=== PATIENT | male | born 1935 | race Caucasian/White ===

== ENCOUNTER 2021-05-28 12:29 | Inpatient (IN) | payer OTHER ==
[2021-05-28] MEDS ORDERED: LORazepam 2 MG/ML VIAL ONE ×2 (14:00→21:07)
--- NOTE | 2021-05-28 14:06 | RAD REPORT ---
EXAM DESCRIPTION: CT - Head Brain Wo Cont - 05/28/2021 1:49 pm CLINICAL HISTORY: MENTAL STATUS CHANGE COMPARISON: No comparisons TECHNIQUE: Axial 5 mm thick images of the head were obtained without IV contrast. All CT scans are performed using dose optimization technique as appropriate and may include automated exposure control or mA/KV adjustment according to patient size. FINDINGS: No intracranial hemorrhage, mass, edema or shift of mid-line structures. No acute cortical based infarction. No cortical edema or sulcal effacement. No abnormal extra-axial fluid collections. Moderate severity atrophy is present with ventricles in proportion. Mild to moderate severity chroni c ischemic change seen in the cerebral white matter. 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 Dense arterial tree calcifications are present. Mastoid air cells and visualized portions of the paranasal sinuses are clear. No acute bony findings. IMPRESSION: Negative non-contrast CT head examination for acute intracranial process. Moderate severity atrophy and mild to moderate chronic ischemic changes are present.
[2021-05-28 14:23] LABS: Basophils % 0.5 % (0-1.3); Hematocrit 35.3 % (39.6-49.0); Lymphocytes % 10.5 % (15.3-44.8); MPV 6.8 fL (7.6-11.3); RBC Red Blood Cell Count 3.95 M/uL (4.33-5.43)
[2021-05-28 14:29] LABS: Protime INR 1.04
--- NOTE | 2021-05-28 14:34 | RAD REPORT ---
EXAM DESCRIPTION: RAD - Chest Single View - 05/28/2021 2:20 pm CLINICAL HISTORY: altered mental status COMPARISON: None TECHNIQUE: AP portable chest image was obtained 05/28/2021 2:20 pm . FINDINGS: No mass, consolidation or failure findings. Interstitial markings are mildly prominent bel ieved to be baseline for the patient. Heart and vasculature are normal. No measurable pleural effusio n and no pneumothorax. No acute bony abnormality seen. No acute aortic findings suspected. IMPRESSION: No acute cardiopulmonary process.
[2021-05-28 14:48] LABS: Urine Blood 1+ (Negative); Urine Glucose Negative (Negative); Urine Protein 1+ (Negative); Urine Specific Gravity 1.015 (1.005-1.030); Urine pH 8.5 (5.0-7.0)
[2021-05-28 14:57] LABS: ALT/SGPT 17 U/L (12-78); Albumin 3.9 g/dL (3.4-5.0); Alkaline Phosphatase 42 U/L (45-117); BUN Blood Urea Nitrogen 20 mg/dL (7-18); Bicarbonate 22 mmol/L (21-32); Bilirubin Direct 0.1 mg/dL (0-0.2); Bilirubin Total 0.8 mg/dL (0.2-1.0); Glucose Level 90 mg/dL (74-106); NT PRO-BNP 456 pg/mL (<450); Protein, Total 6.8 g/dL (6.4-8.2); Sodium Level 131 mmol/L (136-145); Troponin (Emerg Dept Use Only) < 0.02 ng/mL (0.0-0.045)
[2021-05-28 14:58] LABS: AST/SGOT 23 U/L (15-37); Magnesium 2.2 mg/dL (1.8-2.4); Potassium 4.4 mmol/L (3.5-5.1)
--- NOTE | 2021-05-28 15:09 | ER ---
Nurse's Notes [facility] Name: Luis Fernando Carias Age: 86 yrs Sex: Male : 1935 Arrival Date: 05/28/2021 Time: 12:41 Bed 8 Private MD: Diagnosis: Altered mental status, unspecified;UTI/ Urinary tract infection, site not specified Presentation: 05/28 12:46 Chief complaint: EMS states: Toned out for fall, pt altered on arrival, family reports jl7 last normal at 2100 last night, pt A\T\Ox1 to self. Family reports he has done this before and was sent to a psychiatric facility. Coronavirus screen: Client denies travel out of the [place] in the last 14 days. At this time, the client does not indicate any symptoms associated with coronavirus-19. Ebola Screen: No symptoms or risks identified at this time. Initial Sepsis Screen: Does the patient meet any 2 criteria? No. Patient's initial sepsis screen is negative. Does the patient have a suspected source of infection? No. Patient's initial sepsis screen is negative. Risk Assessment: Do you want to hurt yourself or someone else? Patient reports no desire to harm self or others. Onset of symptoms is unknown. Care prior to arrival: Glucose check: 153. 12:46 Method Of Arrival: EMS: [facility]7 12:46 Acuity: LIZA 3 jl7 Triage Assessment: 12:50 General: Appears in no apparent distress. uncomfortable, Behavior is cooperative, jl7 agitated, restless. Pain: Denies pain. Neuro: Level of Consciousness is awake, alert, obeys commands, Oriented to person, Speech with expressive aphasia noted. Cardiovascular: Patient's skin is warm and dry. Respiratory: Airway is patent Respiratory effort is even, unlabored, Respiratory pattern is regular, symmetrical. Derm: Skin is pink, warm \T\ dry. Historical: - Allergies: 12:50 PENICILLINS; jl7 - Home Meds: 12:50 metoprolol tartrate 25 mg Oral tab [Active]; jl7 - PMHx: 12:50 Hypertensive disorder; jl7 - Immunization history:: Adult Immunizations up to date. - Social history:: Smoking status: Patient denies any tobacco usage or history of. Screenin:00 Abuse screen: Denies threats or abuse. Denies injuries from another. Nutritional bp screening: No deficits noted. Tuberculosis screening: No symptoms or risk factors identified. Fall Risk None identified. Assessment: 13:00 General: see triage assessment. jl7 14:00 Reassessment: Patient appears in no apparent distress at this time. No changes from jl7 previously documented assessment. Patient and/or family updated on plan of care and expected duration. Pain level reassessed. Patient is alert, oriented x 3, equal unlabored respirations, skin warm/dry/pink. 16:00 Reassessment: No changes from previously documented assessment. Patient and/or family bp updated on plan of care and expected duration. Pain level reassessed. ADMIT IN PROCESS. ADMIT MD AT B/S. PER FAMILY SUGGESTION, PT PLACED IN RESTRAINTS FOR PT SAFETY. PT AOx0, NOT VERBALLY REDIRECTABLE, ATTEMPTING TO D/C OWN PIV AND EXIT BED. 17:47 Reassessment: DR SEAMAN AT /S. bp 18:40 Reassessment: No changes from previously documented assessment. Patient and/or family bp updated on plan of care and expected duration. Pain level reassessed. ADMIT DECLINED BY FLOOR AT THIS TIME 2/2 PT SPENDING TIME IN RESTRAINTS. 18:45 Reassessment: VO from Dr. Seaman for 2 mg Haldol IVP q4hr PRN. jl7 19:00 Reassessment: Patient appears in no apparent distress at this time. Patient and/or ad5 family updated on plan of care and expected duration. Pain level reassessed. Family updated to plan of care, questions/concerns addressed. Awaiting bed placement for admission at this time. Pt resting comfortably in stretcher, resp with ease. VSS. Will continue to monitor. 20:00 Reassessment: Patient appears in no apparent distress at this time. No changes from ad5 previously documented assessment. Patient and/or family updated on plan of care and expected duration. Pain level reassessed. 21:08 Reassessment: Patient appears in no apparent distress at this time. Pt R elbow cleaned ad5 and non-adherent bandage applied to noted skin tear, reinforced with damien wrap. Pt tolerated well. Repositioned back into stretcher for comfort, resp with ease. Bed remains low and locked, bedrails x 2, call light within reach. Pt with noted continued restlessness and picking at CM cords, reoriented to surroundings and plan of care. Will continue to monitor. 22:30 Reassessment: Pt resting comfortably in stretcher with eyes closed, arouses to verbal ad5 stimuli. Resp with ease. Denies c/o at this time. VS remain stable. Bed low and locked, bedrails x 2, call light within reach. NAD noted, will continue to monitor. Vital Signs: 12:46 BP 121 / 77; Pulse 80; Resp 15; Temp 97.8; Pulse Ox 100% on R/A; jl7 13:30 BP 129 / 72; Pulse 87; Resp 15; Pulse Ox 93% ; jl7 14:15 BP 117 / 64; Pulse 82; Resp 15; Pulse Ox 95% ; jl7 15:20 BP 113 / 64; Pulse 64; Resp 18; Pulse Ox 98% ; bp 17:01 BP 114 / 64; Pulse 68; Resp 18; Pulse Ox 98% ; bp 18:28 BP 131 / 72; Pulse 85; Resp 17; Pulse Ox 100% ; bp 19:44 BP 107 / 57; Pulse 91; Resp 15 S; Pulse Ox 99% on R/A; ad5 21:09 BP 125 / 70; Pulse 78; Resp 16 S; Pulse Ox 99% on R/A; ad5 22:00 BP 112 / 63; Pulse 62; Resp 15 S; Pulse Ox 99% on R/A; ad5 07/16 15:30 BP 103 / 52; Pulse 71; Resp 18; Pulse Ox 100% ; kg ED Course: 05/28 12:41 Patient arrived in ED. iw 12:46 Vida Butler, RN is Primary Nurse. jl7 12:50 Triage completed. jl7 12:50 Arm band placed on right wrist. jl7 13:00 Patient has correct armband on for positive identification. Placed in gown. Bed in low bp position. Call light in reach. Side rails up X2. Adult w/ patient. 13:02 Gautam Weller PA is PHCP. cp 13:02 Miko Carrion MD is Attending Physician. cp 13:40 Inserted saline lock: 20 gauge in left wrist, using aseptic technique. Blood collected. bp 13:48 CT Head Brain wo Cont In Process Unspecified. EDMS 14:19 XRAY Chest (1 view) In Process Unspecified. EDMS 15:09 Wendy Rodarte MD is Hospitalizing Provider. cp 15:40 Darion Seaman is Hospitalizing Provider. cp 16:59 No provider procedures requiring assistance completed. Patient admitted, IV remains in bp place. 05/29 06:21 Primary Nurse role handed off by Vida Butler, JORDY tt3 09:55 Monique Danielle, JORDY is Primary Nurse. kg Restraints: 05/28 16:00 Non-Violent Restraint: Order obtained. Initiated on May 28, 2021 at 16:00 Unable to bp provide Restraint education. PT DOES NOT UNDERSTAND. Actions/Behavior observed: Confused/disoriented, has difficulty remembering/follow instructions, has impaired decision making, repeated attempts to get up from bed/chair w/o assistance, unable to follow instructions, repeated attempts to remove/tamper lines/tubes/IV med devices \T\ wound dressing, Less restrictive alternatives attempted: decrease environmental stimuli, placed near Nurse station, reoriented to location, family at bedside, medications evaluated, repositioned, performed diversional activities, eliminated unnecessary lines/tubes, placed items close to patient, verbal de-escalation performed, Alternative interventions: Ineffective. Clinical justification for use: airway protection, patient safety, Mental status: agitated/restless, confused, Cognition: poor judgement, poor safety awareness, poor attention/concentration, unable to follow commands, Circulation: Within defined parameters (based on Cardiovascular assessment) Skin integrity: Within defined parameters (based on Integumentary assessment) Signs of injury related to restraint: Range of Motion (ROM): declined. Hydration/Food: patient declined. Elimination/Hygiene: Restraint status: Soft wrist restraint (Right) Started. Soft wrist restraint (Left) Started. 19:00 Non-Violent Restraint: Initiated on May 28, 2021 at 16:00 Restraint Education provided ad5 to family/significant other/legally authorized technical services representative. Actions/Behavior observed: Confused/disoriented, has difficulty remembering/follow instructions, has impaired decision making, repeated attempts to get up from bed/chair w/o assistance, unable to follow instructions, repeated attempts to remove/tamper lines/tubes/IV med devices \T\ wound dressing, Less restrictive alternatives attempted: decrease environmental stimuli, placed near Nurse station, reoriented to location, family at bedside, medications evaluated, repositioned, performed diversional activities, Alternative interventions: Ineffective. Clinical justification for use: airway protection, patient safety, Mental status: agitated/restless, confused, Cognition: poor judgement, poor safety awareness, poor attention/concentration, unable to follow commands, Circulation: Within defined parameters (based on Cardiovascular assessment) Skin integrity: Within defined parameters (based on Integumentary assessment) Signs of injury related to restraint: No injuries noted. Range of Motion (ROM): performed. Hydration/Food: patient declined. Elimination/Hygiene: diapers changed. Restraint status: Soft wrist restraint (Right) Continued. Soft wrist restraint (Left) Continued. Criteria to discontinue Restraint not met. Restraint continued. 21:00 Non-Violent Restraint: Initiated on May 28, 2021 at 16:00 Unable to provide Restraint ad5 education. pt family to go home at this time, pt remains confused. Actions/Behavior observed: Confused/disoriented, has difficulty remembering/follow instructions, has impaired decision making, repeated attempts to get up from bed/chair w/o assistance, unable to follow instructions, repeated attempts to remove/tamper lines/tubes/IV med devices \T\ wound dressing, Less restrictive alternatives attempted: decrease environmental stimuli, placed near Nurse station, reoriented to location, family at bedside, medications evaluated, medicated for pain/anxiety, repositioned, performed diversional activities, Alternative interventions: Ineffective. Clinical justification for use: airway protection, patient safety, Mental status: agitated/restless, confused, Cognition: poor judgement, poor safety awareness, poor attention/concentration, unable to follow commands, Circulation: Within defined parameters (based on Cardiovascular assessment) Skin integrity: Within defined parameters (based on Integumentary assessment) Signs of injury related to restraint: No injuries noted. Range of Motion (ROM): declined. Hydration/Food: patient declined. Elimination/Hygiene: Patient declined. Restraint status: Soft wrist restraint (Right) Continued. Soft wrist restraint (Left) Continued. Criteria to discontinue Restraint not met. Restraint continued. :00 Non-Violent Restraint: Initiated on May 28, 2021 at 16:00 Unable to provide Restraint ad5 education. pt appears asleep at this time. Actions/Behavior observed: Confused/disoriented, has difficulty remembering/follow instructions, has impaired decision making, repeated attempts to get up from bed/chair w/o assistance, unable to follow instructions, repeated attempts to remove/tamper lines/tubes/IV med devices \T\ wound dressing, Less restrictive alternatives attempted: decrease environmental stimuli, placed near Nurse station, reoriented to location, medications evaluated, medicated for pain/anxiety, repositioned, performed diversional activities, Alternative interventions: Effective Clinical justification for use: airway protection, patient safety, Mental status: confused, patient asleep, Cognition: poor judgement, poor safety awareness, poor attention/concentration, Circulation: Within defined parameters (based on Cardiovascular assessment) Skin integrity: Within defined parameters (based on Integumentary assessment) Signs of injury related to restraint: No injuries noted. Range of Motion (ROM): performed. Hydration/Food: patient asleep. Elimination/Hygiene: Patient asleep. Restraint status: Soft wrist restraint (Right) Discontinued. Soft wrist restraint (Left) Discontinued. Criteria to discontinue restraint met:Patient no longer exhibits self injurious behaviors. Restraint Discontinued on May 28, 2021 at 22:00. Administered Medications: 13:40 Drug: Ativan (LORazepam) 0.5 mg Route: IVP; Site: left forearm; bp 14:10 Follow up: Response: Anxiety decreased bp 14:42 CANCELLED (Physician Discretion): NS 0.9% (30 ml/kg) 30 ml/kg IV at bolus once; Sepsis cp Protocol 15:13 Drug: NS 0.9% 1000 ml Route: IV; Rate: 1 bolus; Site: left forearm; jl7 18:09 Follow up: IV Status: Completed infusion; IV Intake: 1000ml bp 15:13 Drug: LevaQUIN (levofloxacin) 500 mg Volume: 100 ml; Route: IVPB; Infused Over: 60 jl7 mins; Site: left forearm; 18:08 Follow up: IV Status: Completed infusion; IV Intake: 100ml bp 18:55 Drug: HALdol (haloperidol) 2 mg Route: IVP; Site: left wrist; jl7 21:07 Follow up: Response: No adverse reaction ad5 21:07 Drug: Ativan (LORazepam) 1 mg Route: IVP; Site: left forearm; ad5 21:07 Follow up: Response: No adverse reaction; Anxiety unchanged ad5 Intake: 18:08 IV: 100ml; Total: 100ml. bp 18:09 IV: 1000ml; Total: 1100ml. bp Outcome: 15:09 Decision to Hospitalize by Provider. cp 22:00 Admitted to ER Hold. Please see [facility] for further documentation. ea 22:00 Condition: stable 22:00 Discharge instructions given to patient, Instructed on the need for admit. 05/29 16:18 Patient left the ED. iw Signatures: Dispatcher [employer] EDIndia Oliver RN JORDY iw Gautam Weller PA PA cp Leal, Jahala, RN RN jl7 Bibi De La Cruz RN RN ea Peltier, Brian, RN RN bp Taz, Nader tt3 Monique Danielle RN RN kg Phani Machado Corrections: (The following items were deleted from the chart) 05/28 17:31 16:00 Reassessment: No changes from previously documented assessment. Patient and/or jl7 family updated on plan of care and expected duration. Pain level reassessed. ADMIT IN PROCESS. ADMIT MD AT B/S 17:49 16:00 Reassessment: No changes from previously documented assessment. Patient and/or bp family updated on plan of care and expected duration. Pain level reassessed. ADMIT IN PROCESS. ADMIT MD AT /[facility] 23:49 21:00 Non-Violent Restraint: Initiated on May 28, 2021 at 16:00 Unable to provide ad5 Restraint education. pt family to go home at this time, pt remains confused. Actions/Behavior observed: Confused/disoriented, has difficulty remembering/follow instructions, has impaired decision making, repeated attempts to get up from bed/chair w/o assistance, unable to follow instructions, repeated attempts to remove/tamper lines/tubes/IV med devices \T\ wound dressing, Less restrictive alternatives attempted: decrease environmental stimuli, placed near Nurse station, reoriented to location, family at bedside, medications evaluated, repositioned, performed diversional activities, Alternative interventions: Ineffective. Clinical justification for use: airway protection, patient safety, Mental status: agitated/restless, confused, Cognition: poor judgement, poor safety awareness, poor attention/concentration, unable to follow commands, Circulation: Within defined parameters (based on Cardiovascular assessment) Skin integrity: Within defined parameters (based on Integumentary assessment) Signs of injury related to restraint: No injuries noted. Range of Motion (ROM): declined. Hydration/Food: patient declined. Elimination/Hygiene: Patient declined. Restraint status: Soft wrist restraint (Right) Continued. Soft wrist restraint (Left) Continued. Criteria to discontinue Restraint not met. Restraint continued ad5
--- NOTE | 2021-05-28 15:09 | EDPHYS ---
Physician Documentation [facility] Name: Luis Fernando Carias Age: 86 yrs Sex: Male : 1935 Arrival Date: 05/28/2021 Time: 12:41 Bed 8 Private MD: ED Physician Miko Carrion HPI: 05/28 13:25 This 86 yrs old Male presents to ER via EMS with complaints of Altered Mental cp Status. 13:25 The patient presents with confusion. Onset: The symptoms/episode began/occurred at an unknown time. last known normal last night. Associated signs and symptoms: Pertinent negatives: abdominal pain, chest pain, combativeness, fever. Patient's baseline: Neuro: alert and fully oriented, Motor: no deficits, Ambulation: walks without assistance, Speech: normal. Historical: - Allergies: 12:50 PENICILLINS; jl7 - Home Meds: 12:50 metoprolol tartrate 25 mg Oral tab [Active]; jl7 - PMHx: 12:50 Hypertensive disorder; jl7 - Immunization history:: Adult Immunizations up to date. - Social history:: Smoking status: Patient denies any tobacco usage or history of. ROS: 13:30 Constitutional: Negative for fever, poor PO intake. cp 13:30 Eyes: Negative for injury, pain, redness, and discharge. cp 13:30 ENT: Negative for ear pain, sore throat, difficulty swallowing, difficulty handling secretions. 13:30 Cardiovascular: Negative for chest pain. 13:30 Respiratory: Negative for cough, shortness of breath, wheezing. 13:30 Abdomen/GI: Negative for abdominal pain, nausea, vomiting, and diarrhea. 13:30 Skin: Negative for cellulitis, rash. 13:30 Neuro: Positive for altered mental status, speech changes, Negative for headache. 13:30 All other systems are negative. Exam: 13:35 Constitutional: The patient appears in no acute distress, alert, awake, cp non-diaphoretic, non-toxic, well developed, frail. 13:35 Head/Face: Normocephalic, atraumatic. cp 13:35 Eyes: Periorbital structures: appear normal, Pupils: equal, round, and reactive to light and accomodation, Extraocular movements: intact throughout, Conjunctiva: normal, no exudate, no injection, Sclera: no appreciated abnormality, Lids and lashes: appear normal, bilaterally. 13:35 ENT: External ear(s): are unremarkable, Nose: is normal, Mouth: Lips: moist, Oral mucosa: moist, Posterior pharynx: Airway: no evidence of obstruction, patent. 13:35 Neck: ROM/movement: is normal, is supple, no meningismus, no nuchal rigidity. 13:35 Chest/axilla: Inspection: normal, Palpation: is normal, no crepitus, no tenderness. 13:35 Cardiovascular: Rate: normal, Rhythm: regular, Edema: is not appreciated, JVD: is not appreciated. 13:35 Respiratory: the patient does not display signs of respiratory distress, Respirations: normal, no use of accessory muscles, no retractions, labored breathing, is not present, Breath sounds: are clear throughout, no decreased breath sounds, no stridor, no wheezing. 13:35 Abdomen/GI: Inspection: abdomen appears normal, Palpation: abdomen is soft and non-tender, in all quadrants. 13:35 Skin: cellulitis, is not appreciated, no rash present. 13:35 Neuro: Orientation: to person, Mentation: able to follow commands, confused, Motor: moves all fours, strength is normal. 14:33 ECG was reviewed by the Attending Physician. cp Vital Signs: 12:46 BP 121 / 77; Pulse 80; Resp 15; Temp 97.8; Pulse Ox 100% on R/A; jl7 13:30 BP 129 / 72; Pulse 87; Resp 15; Pulse Ox 93% ; jl7 14:15 BP 117 / 64; Pulse 82; Resp 15; Pulse Ox 95% ; jl7 15:20 BP 113 / 64; Pulse 64; Resp 18; Pulse Ox 98% ; bp 17:01 BP 114 / 64; Pulse 68; Resp 18; Pulse Ox 98% ; bp 18:28 BP 131 / 72; Pulse 85; Resp 17; Pulse Ox 100% ; bp 19:44 BP 107 / 57; Pulse 91; Resp 15 S; Pulse Ox 99% on R/A; ad5 21:09 BP 125 / 70; Pulse 78; Resp 16 S; Pulse Ox 99% on R/A; ad5 22:00 BP 112 / 63; Pulse 62; Resp 15 S; Pulse Ox 99% on R/A; ad5 07/16 15:30 BP 103 / 52; Pulse 71; Resp 18; Pulse Ox 100% ; kg MDM: 05/28 13:22 Patient medically screened. 15:20 Data reviewed: vital signs, nurses notes, lab test result(s), EKG, radiologic studies, cp CT scan, plain films. 15:20 Test interpretation: by ED physician or midlevel provider: ECG, plain radiologic cp studies. 05/28 13:20 Order name: Basic Metabolic Panel; Complete Time: 15:00 05/28 15:00 Interpretation: Normal except: NA 131; BUN 20; CRE 1.47; GFR 46. 05/28 13:20 Order name: CBC with Diff; Complete Time: 14:40 05/28 14:40 Interpretation: Normal except: HGB 12.0; RBC 3.95; HCT 35.3; MPV 6.8; JAMESON% 84.9; LYM% cp 10.5; NEUT A 8.1. 05/28 13:20 Order name: LFT's; Complete Time: 15:00 05/28 15:42 Interpretation: Normal except: ALK 42. 05/28 13:20 Order name: Magnesium; Complete Time: 15:00 05/28 13:20 Order name: NT PRO-BNP; Complete Time: 15:00 05/28 13:20 Order name: PT-INR; Complete Time: 14:40 05/28 13:20 Order name: Troponin (emerg Dept Use Only); Complete Time: 15:00 05/28 13:20 Order name: Urine Microscopic Only 05/28 13:20 Order name: AMMONIA; Complete Time: 14:40 05/28 13:20 Order name: Procalcitonin; Complete Time: 15:00 05/28 13:20 Order name: Lactate; Complete Time: 14:40 05/28 13:20 Order name: Blood Culture Adult (2) 05/28 14:48 Order name: Urine Dipstick-Ancillary; Complete Time: 14:58 [facility] 05/28 14:58 Interpretation: Normal except: UBLD 1+; UKET 2+; UPH 8.5; UPROT 1+; U NIT Positive; cp UESTR Trace. 05/28 15:46 Order name: Urine Culture [facility] 05/28 16:30 Order name: SARS-COV-2 RT PCR [facility] 05/28 17:20 Order name: Lactate Sepsis 2 HR Follow-up EDMS 05/29 00:45 Order name: Blood Culture EDMS 05/29 00:45 Order name: Urine Culture EDMS 05/29 00:45 Order name: Basic Metabolic Panel EDMS 05/29 00:45 Order name: Basic Metabolic Panel EDMS 05/29 00:45 Order name: Basic Metabolic Panel EDMS 05/29 00:45 Order name: Basic Metabolic Panel EDMS 05/29 00:45 Order name: CBC with Automated Diff EDMS 05/29 00:45 Order name: CBC with Automated Diff EDMS 05/29 00:45 Order name: CBC with Automated Diff EDMS 05/29 00:45 Order name: CBC with Automated Diff EDMS 05/29 00:45 Order name: T4 Free EDMS 05/29 00:45 Order name: T4 Free EDMS 05/29 00:45 Order name: Thyroid Stimulating Hormone EDMS 05/28 13:20 Order name: CT Head Brain wo Cont; Complete Time: 14:16 cp 05/28 14:16 Interpretation: Report reviewed. 05/28 13:20 Order name: XRAY Chest (1 view); Complete Time: 14:40 cp 05/28 13:20 Order name: EKG; Complete Time: 13:22 cp 05/28 13:20 Order name: Cardiac monitoring; Complete Time: 14:10 cp 05/28 13:20 Order name: EKG - Nurse/Tech; Complete Time: 15:14 cp 05/28 13:20 Order name: IV Saline Lock; Complete Time: 14:09 cp 05/28 13:20 Order name: Labs collected and sent; Complete Time: 14:09 cp 05/28 13:20 Order name: O2 Per Protocol; Complete Time: 14:09 cp 05/28 13:20 Order name: O2 Sat Monitoring; Complete Time: 14:09 cp 05/28 13:20 Order name: Urine Dipstick-Ancillary (obtain specimen); Complete Time: 15:14 cp 05/28 14:16 Order name: Cath; Complete Time: 14:50 cp 05/28 18:27 Order name: Restraint:Non-Violent: ORDERED BY SALBADOR HAINES NP; Complete Time: 18:27 bp 05/29 00:45 Order name: NPO EDPR 05/29 00:46 Order name: Social Service Consult EDMS 05/29 00:46 Order name: Urinalysis EDPR 05/29 00:46 Order name: Urinalysis EDPR 05/29 00:46 Order name: Thyroid Stimulating Hormone EDPR 05/29 00:46 Order name: Urinalysis EDPR EC:33 Rhythm is regular. [place] interval is normal. QRS interval is normal. QT interval is cp normal. T waves are Inverted in leads aVR, V2. Interpreted by me. Reviewed by me. Administered Medications: 13:40 Drug: Ativan (LORazepam) 0.5 mg Route: IVP; Site: left forearm; bp 14:10 Follow up: Response: Anxiety decreased bp 14:42 CANCELLED (Physician Discretion): NS 0.9% (30 ml/kg) 30 ml/kg IV at bolus once; Sepsis cp Protocol 15:13 Drug: NS 0.9% 1000 ml Route: IV; Rate: 1 bolus; Site: left forearm; jl7 18:09 Follow up: IV Status: Completed infusion; IV Intake: 1000ml bp 15:13 Drug: LevaQUIN (levofloxacin) 500 mg Volume: 100 ml; Route: IVPB; Infused Over: 60 jl7 mins; Site: left forearm; 18:08 Follow up: IV Status: Completed infusion; IV Intake: 100ml bp 18:55 Drug: HALdol (haloperidol) 2 mg Route: IVP; Site: left wrist; jl7 21:07 Follow up: Response: No adverse reaction ad5 21:07 Drug: Ativan (LORazepam) 1 mg Route: IVP; Site: left forearm; ad5 21:07 Follow up: Response: No adverse reaction; Anxiety unchanged ad5 Disposition Summary: 05/28/21 15:09 Hospitalization Ordered Hospitalization Status: Inpatient Admission cp Condition: Stable cp Problem: new cp Symptoms: are unchanged cp Bed/Room Type: Standard cp Provider: Darion Soto(05/28/21 15:40) cp Location: Telemetry/MedSur (Inpatient)(05/29/21 15:00) eb Room Assignment: [facility](05/29/21 15:00) eb Diagnosis - Altered mental status, unspecified cp - UTI/ Urinary tract infection, site not specified cp Discharge Instructions: - Discharge Summary Sheet jl7 - Urinary Tract Infection, Adult jl7 Forms: - Medication Reconciliation Form cp - SBAR form cp Addendum: 05/31/2021 07:22 Co-signature as Attending Physician, Miko Carrion MD I agree with the assessment and k dr plan of care. Signatures: Dispatcher [employer] EDMS Miko Carrion MD MD [facility] Shital Candelaria, RN RN bb [place] Alonso RN RN iw Gautam Weller, CAMPOS PA cp Vida Butler RN RN ed [facility] Edgar [facility] Jett Garcia RN RN Liberty Bowman Andrea ad5 Corrections: (The following items were deleted from the chart) 05/28 14:42 14:41 NS 0.9% (30 ml/kg) 30 ml/kg IV at bolus once; Sepsis Protocol ordered. cp 15:30 15:18 CORONAVIRUS+MR.LAB.BRZ ordered. EDPR EDPR 15:40 15:09 Wendy Rodarte cp 17:25 15:09 mt 18:28 17:25 [facility] iw 23:27 15:09 Telemetry/MedSurg (Inpatient) cp bb 23:27 18:28 iw bb 23:27 23:27 bb bb 05/29 15:00 05/28 23:27 [facility] ER HOLD bb eb 05/29 15:00 05/28 23:27 ERHOLD- bb eb
[2021-05-28] MEDS ORDERED: NA CHLORIDE 0.9% 1,000 ML ONE (15:29)
[2021-05-28] MEDS ORDERED: Levofloxacin500mg IV 500 MG/100 ML BAG IV ONE (15:29)
[2021-05-28 15:45] LABS: Urine Bacteria 20-50 /HPF (NONE SEEN)
--- NOTE | 2021-05-28 17:31 | P.HP ---
Certification for Inpatient With expected LOS: <2 Midnights Patient will require the following post-hospital care: Home Health Services Practitioner: I am a practitioner with admitting privileges, knowledge of patient current condition, hospital course, and medical plan of care. Services: Services provided to patient in accordance with Admission requirements found in Title 42 Section 412.3 of the Code of Federal Regulations Patient History Date of Service: 05/28/21 Primary Care Provider: Dr. Casas Reason for admission: AMS History of Present Illness: This is a 84 y/o M with HTN who presents today with altered mental status. and daughter at bedside. They report that patient woke up this morning disoriented, with jumbled speech, and was pacing back and forth. Family states these symptoms occur often but never to this extent. Pt previously on trazodone and ativan for these episodes per family. Pt fell in the shower and EMS was called. Last known normal was last night. Family denies pt c/o any recent nausea, vomiting, diarrhea, chills. Family reports history of accidental phentermine overdose in November 2019. UA+ WC 9.5 lactic acid 2.8 negative trop negative procal CXR: No mass, consolidation or failure findings. Interstitial markings are mildly prominent believed to be baseline for the patient. Heart and vasculature are normal. No measurable pleural effusion and no pneumothorax. No acute bony abnormality seen. No acute aortic findings suspected. IMPRESSION: No acute cardiopulmonary process. CT head: IMPRESSION: Negative non-contrast CT head examination for acute intracranial process. Moderate severity atrophy and mild to moderate chronic ischemic changes are present. Allergies Penicillins Allergy (Verified 05/28/21 18:57) Hives/Rash Home Medications: Metoprolol Tartrate [Lopressor*] 25 mg PO DAILY 05/28/21 - Past Medical/Surgical History Diabetic: No -: HTN -: tonsillectomy -: appendectomy Psychosocial/ Personal History: lives at home with and daughter - Family History Father -: Cancer Mother -: Stroke - Social History Smoking Status: Former smoker Alcohol use: No CD- Drugs: No Caffeine use: Yes Physical Examination - Physical Exam General: Disheveled, Confused, Other (alert to self) HEENT: Atraumatic, Normocephalic, EOMI Neck: No LAD Respiratory: Clear to auscultation bilaterally, Normal air movement Cardiovascular: No edema, Regular rate/rhythm, Normal S1 S2 Capillary refill: <2 Seconds Gastrointestinal: Normal bowel sounds, Soft and benign, Non-distended, No rebound, No guarding Musculoskeletal: No swelling Integumentary: Other (Erythema L hand) Neurological: Abnormal speech - Studies Laboratory Data (last 24 hrs) 05/28/21 14:05: PT 12.0, INR 1.04 05/28/21 14:05: WBC 9.50, Hgb 12.0 L, Hct 35.3 L, Plt Count 237 05/28/21 14:05: Sodium 131 L, Potassium 4.4, BUN 20 H, Creatinine 1.47 H, Glucose 90, Magnesium 2.2, Total Bilirubin 0.8, AST 23, ALT 17, Alkaline Phosphatase 42 L Assessment and Plan - Plan impression: altered mental status likely secondary to UTI HTN plan: -UA consistent with UTI -continue levaquin due to PCN allergy -urine and blood cultures pending -IVF -NPO for today. may start diet tomorrow depending on if mentation has improved -obtain home meds and restart as appropriate -social consult per family request. family is having a difficult time caring for patient VTE: lovenox Code: DNR Dispo: discharge home vs retirement/home health Discharge Plan: Home Plan to discharge in: Greater than 2 days - Advance Directives Does patient have a Living Will: No Does patient have a Durable POA for Healthcare: No - Code Status/Comfort Care Code Status Assessed: Yes Code Status: Do Not Attempt Resuscitat Time Spent Managing Pts Care (In Minutes): 55
[2021-05-28] MEDS ORDERED: HALOPERIDOL LACT 5 MG/ML INJ IV PRN (18:46)
[2021-05-28] MEDS ORDERED: HALOPERIDOL LACT 5 MG/ML INJ ONE (19:12)
[2021-05-29] MEDS ORDERED: ONDANSETRON 4 MG/2 ML VIAL IV PRN (00:44)
[2021-05-29] MEDS ORDERED: ACETAMINOPHEN 500 MG TAB PO PRN (00:44)
[2021-05-29 02:55] VITALS: BMI 21.7
[2021-05-29] MEDS ORDERED: NA CHLORIDE 0.9% 1,000 ML ONE (03:32)
[2021-05-29] MEDS: NA CHLORIDE 0.9% 1,000 ML IV SCH ×3 (04:00→20:44)
[2021-05-29 05:31] LABS: Absolute Lymphocytes (CBC) 1.4 K/uL (0.7-4.9); Basophils % 0.8 % (0-1.3); Hematocrit 35.6 % (39.6-49.0); MPV 6.7 fL (7.6-11.3); RBC Red Blood Cell Count 3.98 M/uL (4.33-5.43)
[2021-05-29 05:52] LABS: Potassium 3.8 mmol/L (3.5-5.1); Thyroid Stimulating Hormone 2.66 uIU/mL (0.360-3.740)
[2021-05-29] MEDS: ENOXAPARIN 40 MG/0.4 ML SQ SCH (09:00)
[2021-05-29] MEDS ORDERED: ENOXAPARIN 40 MG/0.4 ML SQ ONE (09:49)
--- NOTE | 2021-05-29 11:45 | EKG ---
Test Date: 2021-05-28 Test Time: 14:26:20 Accounting Systems Manager: MAX MEASUREMENT RESULTS: Intervals: Rate: 78 [place]: 184 QRSD: 72 QT: 366 QTc: 417 [place]: P: 49 [place]: 184 QRS: 78 T: 69 INTERPRETIVE STATEMENTS: Normal sinus rhythm Normal ECG No previous ECG available for comparison Electronically Signed On 05-29-21 11:42:17 CDT by Matteo Owen
--- NOTE | 2021-05-29 16:18 | P.PN ---
Subjective Date of Service: 05/29/21 Primary Care Provider: Dr. Casas Chief Complaint: AMS Patient is more calm today. Not agitated but has been sleeping most of the day. Urine culture is growing Gram negative rods. Physical Examination - Vital Signs Temperature: 98.2 F Blood Pressure: 108/68 Pulse: 77 Respirations: 16 Pulse Ox (%): 100 - Physical Exam General: In no apparent distress, Other (Drowsy) HEENT: Mucous membr. moist/pink Neck: Supple, JVD not distended Respiratory: Clear to auscultation bilaterally, Normal air movement Cardiovascular: No edema, Regular rate/rhythm, Normal S1 S2 Gastrointestinal: Soft and benign, Non-distended Musculoskeletal: No swelling Integumentary: No rashes Neurological: Normal strength at 5/5 x4 extr, Other (No focal motor deficit.) Assessment And Plan - Current Problems (Diagnosis) (1) Acute metabolic encephalopathy Current Visit: Yes Status: Acute (2) UTI (urinary tract infection) Current Visit: Yes Status: Acute (3) Hypertension Current Visit: Yes Status: Acute - Plan Continue current IV antibiotics. IV hydration. Blood culture: No growth to date. Follow urine culture and blood cultures. Brock phillip for agitation PT to evaluate. Social service team assisting with discharge planning. Family looking at SNF placement. Hold antihypertensives given soft blood pressure.
[2021-05-29] MEDS: Levofloxacin 250mg IV 250 MG/50 ML BAG IV SCH (16:37)
[2021-05-29 23:44] VITALS: O2SAT 95
[2021-05-30] MEDS: NA CHLORIDE 0.9% 1,000 ML IV SCH ×2 (05:46→16:44)
[2021-05-30 07:33] LABS: Phosphorus 3.1 mg/dL (2.5-4.9); Potassium 3.9 mmol/L (3.5-5.1)
[2021-05-30 07:44] LABS: Absolute Lymphocytes (CBC) 1.4 K/uL (0.7-4.9); Basophils % 0.7 % (0-1.3); Hematocrit 36.4 % (39.6-49.0); Lymphocytes % 23.6 % (15.3-44.8); MPV 6.7 fL (7.6-11.3); RBC Red Blood Cell Count 4.03 M/uL (4.33-5.43)
[2021-05-30] MEDS: ENOXAPARIN 40 MG/0.4 ML SQ SCH (08:02)
[2021-05-30] MEDS ORDERED: KCL 20 MEQ/100 mL IVPB 20 MEQ/100 ML BAG IV SCH (09:00)
--- NOTE | 2021-05-30 13:46 | P.PN ---
Subjective Date of Service: 05/30/21 Primary Care Provider: Dr. Casas Chief Complaint: AMS Patient is more awake and communicating. He denies any weakness Urine culture is growing pansensitive E. coli. Physical Examination - Vital Signs Temperature: 97.7 F Blood Pressure: 116/57 Pulse: 84 Respirations: 17 Pulse Ox (%): 95 - Physical Exam General: In no apparent distress, Oriented x2 HEENT: Mucous membr. moist/pink Neck: JVD not distended Respiratory: Clear to auscultation bilaterally, Normal air movement Cardiovascular: No edema, Regular rate/rhythm, Normal S1 S2 Gastrointestinal: Normal bowel sounds, Soft and benign, Non-distended, No tenderness Musculoskeletal: No contractures Integumentary: No rashes Neurological: Normal strength at 5/5 x4 extr - Studies Microbiology Data (last 24 hrs): 05/28/21 15:15 Clean Catch Urine Goode Count - Final >100,000 CFU/ML. 05/28/21 15:15 Clean Catch Urine - Final Escherichia Coli Gram Neg [place] Assessment And Plan - Current Problems (Diagnosis) (1) Acute metabolic encephalopathy Current Visit: Yes Status: Acute (2) UTI (urinary tract infection) Current Visit: Yes Status: Acute (3) Hypertension Current Visit: Yes Status: Acute - Plan Continue current IV antibiotics. Discontinue IV hydration once patient is able to eat well. Blood culture: No growth to date. Urine culture: Pansensitive E. coli. Patient to complete 5 days of antibiotics. Brock [email or web address] for agitation PT to evaluate. Social service team assisting with discharge planning. Family looking at SNF placement. Hold antihypertensives given soft blood pressure.
[2021-05-30] MEDS: Levofloxacin 250mg IV 250 MG/50 ML BAG IV SCH (14:34)
[2021-05-31] MEDS: NA CHLORIDE 0.9% 1,000 ML IV SCH ×3 (02:58→20:14)
[2021-05-31 06:40] LABS: Absolute Lymphocytes (CBC) 2.3 K/uL (0.7-4.9); Basophils % 0.8 % (0-1.3); Hematocrit 39.1 % (39.6-49.0); Lymphocytes % 27.7 % (15.3-44.8); MPV 6.4 fL (7.6-11.3); RBC Red Blood Cell Count 4.32 M/uL (4.33-5.43)
[2021-05-31 06:46] LABS: Potassium 3.7 mmol/L (3.5-5.1)
[2021-05-31] MEDS ORDERED: POTASSIUM 25 MEQ EFFERV TAB PO ONE (08:00)
[2021-05-31] MEDS: ENOXAPARIN 40 MG/0.4 ML SQ SCH (08:03)
--- NOTE | 2021-05-31 14:13 | P.PN ---
Subjective Date of Service: 05/31/21 Primary Care Provider: Dr. Casas Chief Complaint: AMS Patient has no complain today. He states he feels fine. No issues overnight. No agitation reported. Physical Examination - Vital Signs Temperature: 98.3 F Blood Pressure: 134/63 Pulse: 80 Respirations: 17 Pulse Ox (%): 95 - Physical Exam General: In no apparent distress, Confused HEENT: Mucous membr. moist/pink Neck: JVD not distended Respiratory: Clear to auscultation bilaterally, Normal air movement Cardiovascular: No edema, Regular rate/rhythm, Normal S1 S2 Gastrointestinal: Soft and benign, Non-distended, No tenderness Musculoskeletal: No swelling Integumentary: No rashes, No erythema Neurological: Normal strength at 5/5 x4 extr, Cranial nerves 3-12 intact Assessment And Plan - Current Problems (Diagnosis) (1) Acute metabolic encephalopathy Current Visit: Yes Status: Acute (2) UTI (urinary tract infection) Current Visit: Yes Status: Acute (3) Hypertension Current Visit: Yes Status: Acute - Plan Continue current IV antibiotics. Blood culture: No growth to date. Urine culture: Pansensitive E. coli. Patient to complete 5 days of antibiotics. Brock phillip for agitation PT to evaluate. Daughter reports patient has been intermittently confused, unable to carry out his ADLs, overdose on his medications before and needing constant supervision. Social service team assisting with discharge planning. Family looking at SNF placement.
[2021-05-31] MEDS: Levofloxacin 250mg IV 250 MG/50 ML BAG IV SCH (15:22)
[2021-05-31] MEDS: MELATONIN 5 MG TABLET PO PRN (23:00)
[2021-06-01 06:05] LABS: Potassium 3.8 mmol/L (3.5-5.1)
[2021-06-01] MEDS: ENOXAPARIN 40 MG/0.4 ML SQ SCH (08:19)
[2021-06-01] MEDS: NA CHLORIDE 0.9% 1,000 ML IV SCH ×2 (08:21→18:45)
[2021-06-01] MEDS ORDERED: POTASSIUM CL SA 10 MEQ TAB PO ONE (09:00)
--- NOTE | 2021-06-01 13:51 | P.PN ---
Subjective Date of Service: 06/01/21 Primary Care Provider: Dr. Casas Chief Complaint: AMS Patient has no complain today. He states he feels fine. He appears pleasant. No issues overnight. No agitation reported. Physical Examination - Vital Signs Temperature: 97.4 F Blood Pressure: 116/59 Pulse: 68 Respirations: 16 Pulse Ox (%): 97 - Physical Exam General: In no apparent distress, Confused (pleasant) HEENT: Mucous membr. moist/pink Neck: JVD not distended Respiratory: Clear to auscultation bilaterally, Normal air movement Cardiovascular: No edema, Regular rate/rhythm, Normal S1 S2 Gastrointestinal: Soft and benign, Non-distended, No tenderness Musculoskeletal: No swelling Integumentary: No rashes Neurological: Normal strength at 5/5 x4 extr Assessment And Plan - Current Problems (Diagnosis) (1) Acute metabolic encephalopathy Current Visit: Yes Status: Acute (2) UTI (urinary tract infection) Current Visit: Yes Status: Acute (3) Hypertension Current Visit: Yes Status: Acute - Plan Change IV Levaquin to oral Blood culture: No growth to date. Urine culture: Pansensitive E. coli. Patient to complete 5 days of antibiotics. Brock [email or web address] for agitation PT ambulating with a walker Daughter reports patient has been intermittently confused, unable to carry out his ADLs, overdose on his medications before and needing constant supervision. Social service team assisting with discharge planning. Family looking at SNF placement.
[2021-06-01] MEDS: MELATONIN 5 MG TABLET PO PRN (19:58)
[2021-06-02] MEDS: NA CHLORIDE 0.9% 1,000 ML IV SCH (04:44)
[2021-06-02 05:47] LABS: Potassium 3.8 mmol/L (3.5-5.1)
[2021-06-02] MEDS ORDERED: POLYETHYL GLY 3350 17 GM/DOSE PO ONE (07:27)
[2021-06-02] MEDS: ENOXAPARIN 40 MG/0.4 ML SQ SCH (08:23)
[2021-06-02] MEDS ORDERED: POTASSIUM CL SA 10 MEQ TAB PO ONE (09:00)
[2021-06-02] MEDS ORDERED: levoFLOXacin 750 MG TAB PO SCH (09:00)
--- NOTE | 2021-06-02 11:26 | P.DS ---
Admission Date: 05/29/21 Discharge Date: 06/02/21 Primary Care Provider: Dr. Casas Disposition: TRANSFER TO SNF - MEDICAL Discharge Condition: GOOD Reason for Admission: AMS Procedures: CXR (05/28): No acute cardiopulmonary process. Interstitial markings are mildly prominent believed to be baseline for the patient. CT head (05/28): Negative noncontrast CT head examination for acute intracranial process. Moderate severity atrophy and mild to moderate chronic ischemic changes are present. 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 Dense arterial tree calcifications are present. Problem list Acute cystitis Acute metabolic encephalopathy secondary to infection Hypertension mild dementia Brief History of Present Illness: 84 y/o M with HTN who presents today with altered mental status. and daughter at bedside. They report that patient woke up this morning disoriented, with jumbled speech, and was pacing back and forth. Family states these symptoms occur often but never to this extent. Pt previously on trazodone and ativan for these episodes per family. Pt fell in the shower and EMS was called. Last known normal was last night. Family denies pt c/o any recent nausea, vomiting, diarrhea, chills. Family reports history of accidental phentermine overdose in November 2019. Hospital Course: Patient was treated empirically with IV antibiotics for his UTI. He had resolution of his symptoms and was feeling much better on day of discharge. His urine culture grew pansensitive E. coli. Family reported difficulty caring for the patient at home due to intermittent confusion/agitation secondary to undiagnosed dementia. On day of discharge, he was pleasant, AAO x3, working with PT. He was discharged to SNF to continue treatment. Vital Signs/Physical Exam: Temp Pulse Resp BP Pulse Ox 98 F 111 H 18 139/81 96 06/02/21 08:00 06/02/21 08:00 06/02/21 08:00 06/02/21 08:00 06/02/21 08:00 General: Alert, In no apparent distress, Oriented x3 HEENT: Mucous membr. moist/pink, Sclerae nonicteric Respiratory: Clear to auscultation bilaterally, Normal air movement Cardiovascular: No edema, Regular rate/rhythm, Normal S1 S2 Capillary refill: <2 Seconds Gastrointestinal: Soft and benign, Non-distended, No tenderness Musculoskeletal: No tenderness Integumentary: No rashes, No significant lesion Neurological: Normal speech, Normal affect Laboratory Data at Discharge: WBC 8.50 K/uL (4.3-10.9) D 05/31/21 06:19 Hgb 13.4 g/dL (13.6-17.9) L 05/31/21 06:19 Hct 39.1 % (39.6-49.0) L 05/31/21 06:19 Plt Count 250 K/uL (152-406) 05/31/21 06:19 PT 12.0 SECONDS (9.5-12.5) 05/28/21 14:05 INR 1.04 05/28/21 14:05 Sodium 140 mmol/L (136-145) 06/02/21 05:12 Potassium 3.8 mmol/L (3.5-5.1) 06/02/21 05:12 BUN 12 mg/dL (7-18) 06/02/21 05:12 Creatinine 1.15 mg/dL (0.55-1.3) 06/02/21 05:12 Glucose 80 mg/dL (74-106) 06/02/21 05:12 Phosphorus 3.1 mg/dL (2.5-4.9) 05/30/21 06:53 Magnesium 2.2 mg/dL (1.8-2.4) 05/28/21 14:05 Total Bilirubin 0.8 mg/dL (0.2-1.0) 05/28/21 14:05 AST 23 U/L (15-37) 05/28/21 14:05 ALT 17 U/L (12-78) 05/28/21 14:05 Alkaline Phosphatase 42 U/L (45-117) L 05/28/21 14:05 Home Medications: Metoprolol Tartrate [Lopressor*] 25 mg PO BEDTIME 05/28/21 Aspirin [Aspirin EC 81 MG] 81 mg PO BEDTIME 05/29/21 levoFLOXacin [Levaquin*] 750 mg PO DAILY 4 Days #4 tab 06/02/21 New Medications: levoFLOXacin [Levaquin*] 750 mg PO DAILY 4 Days #4 tab Physician Discharge Instructions: You were found to have a urinary tract infection. Your symptoms /confusion improved with antibiotics. You are discharged with 4 more days of antibiotics. Follow up with PCP in 3-5 days of discharge from group home facility. Diet: Regular Activity: Ad latonia Followup: Anthony Casas MD [Primary Care Provider] - (Call to schedule appointment) Time spent managing pt's care (in minutes): 40
[2021-06-02 12:13] VITALS: BP 140/79; TEMP 98.1
== END 2021-06-02 13:00 | DRG 689 ==
LOC: ER 12:29 → ERHOLD 05-29 01:26 → 2ND 05-29 15:49
PROVIDERS: ADMIT Internal Medicine; ATTEND Hospitalist
DX: N30.00 Acute cystitis without hematuria (principal); G93.41 Metabolic encephalopathy; F03.90 Unspecified dementia, unspecified severity, without behavioral disturbance, psychotic disturbance, mood disturbance, and anxiety; I10 Essential (primary) hypertension; B96.20 Unspecified Escherichia coli [E. coli] as the cause of diseases classified elsewhere; Z66 Do not resuscitate; Z88.0 Allergy status to penicillin; Z79.899 Other long term (current) drug therapy; Z90.49 Acquired absence of other specified parts of digestive tract; Z87.891 Personal history of nicotine dependence; Z79.82 Long term (current) use of aspirin; Z20.822 Contact with and (suspected) exposure to COVID-19
CPT/HCPCS: 36415; 70450; 71045; 80048; 80076; 81003; 81015; 82140; 83605; 83735; 83880; 84100; 84145; 84439; 84443; 84484; 85025; 85610; 87040; 87077; 87086; 87088; 87186; 93005; 97116; 97161; 97530; 99285; J1630; J1650; J3480; J7030; U0003

== ENCOUNTER 2021-08-27 23:17 | Inpatient (IN) | payer OTHER ==
[2021-08-27 23:34] LABS: Urine Blood 1+ (Negative); Urine Glucose Negative (Negative); Urine Protein Negative (Negative)
[2021-08-27] MEDS ORDERED: LORazepam 2 MG/ML VIAL ONE (23:55)
[2021-08-28 00:22] LABS: Urine Bacteria <20 /HPF (NONE SEEN)
[2021-08-28 00:28] LABS: Absolute Lymphocytes (CBC) 3.1 K/uL (0.7-4.9); Basophils % 1.5 % (0-1.3); Hematocrit 35.7 % (39.6-49.0); Lymphocytes % 32.3 % (15.3-44.8); MPV 6.1 fL (7.6-11.3); RBC Red Blood Cell Count 3.97 M/uL (4.33-5.43)
[2021-08-28 00:32] LABS: Protime INR 0.91
[2021-08-28 00:40] LABS: Potassium 3.8 mmol/L (3.5-5.1)
[2021-08-28] MEDS ORDERED: CEFTRIAXONE 1000 MG/VIAL ONE (00:53)
[2021-08-28] MEDS ORDERED: NA CHLORIDE 0.9% 0 ML ONE (00:54)
[2021-08-28] MEDS ORDERED: NA CHLORIDE 0.9% 50 ML ONE (00:54)
[2021-08-28] MEDS ORDERED: NA CHLORIDE 0.9% 500 ML ONE (00:57)
[2021-08-28] MEDS ORDERED: LORazepam 2 MG/ML VIAL ONE (01:15)
[2021-08-28] MEDS ORDERED: LORAZEPAM 0.5 MG TABLET ONE (01:17)
[2021-08-28] MEDS ORDERED: MEPERIDINE HCL 25 MG/ML SYR ONE (01:39)
--- NOTE | 2021-08-28 02:52 | ER ---
Nurse's Notes [facility] Name: Luis Fernando Carias Age: 86 yrs Sex: Male : 1935 Arrival Date: 08/27/2021 Time: 23:20 Bed 3 Private MD: Diagnosis: Altered mental status, unspecified;Delirium due to known physiological condition;Restlessness and agitation Presentation: 08/28 00:12 Chief complaint: EMS states: BIBA. Pt was brought from longterm for AMS, Per EMS bc5 "staff said they last saw him normal around 8 pm this evening the about 15 mins before we got there he was found walking around room babbling" Pt has history of dementia, dysphagia, and UTI" Pt is grabbing at EMS and ED staff, trying to get out of bed and remove clothing, repeating "let me get up" "please quit". Per verbal from Dr. Ernandez "give 0.5 mg Ativan IM". Coronavirus screen: Vaccine status:. Ebola Screen: No symptoms or risks identified at this time. Initial Sepsis Screen: Does the patient meet any 2 criteria? Altered Mental Status. No. Patient's initial sepsis screen is negative. Does the patient have a suspected source of infection? No. Patient's initial sepsis screen is negative. Risk Assessment: Do you want to hurt yourself or someone else? Unable to obtain. Onset of symptoms was August 27, 2021 at 23:30. 00:12 Method Of Arrival: EMS: [facility] bc5 00:12 Acuity: LIZA 2 bc5 04:07 Note Placed call to [facility]. Pt baseline in walkie/talkie with no cane/walker. Pt has df1 periods of confusion but can be reoriented. No dysphagia at this time. Pt on regular diet, takes pills whole with thin liquids. Spouse is aware that pt is in hospital. Fartun [phone]. Nnamdi notified of admission. Triage Assessment: 00:22 General: Appears well groomed, Behavior is combative, uncooperative. Pain: Unable to bc5 use pain scale. Patient is disoriented. Historical: - Home Meds: 03:50 metoprolol tartrate 12.5 Oral tab 1 tab nightly [Active]; Senna-S 8.6-50 mg oral tab 2 df1 tabs once daily [Active]; aspirin 81 mg Oral tab 81 mg daily [Active]; Pepcid 20 mg Oral tab 1 tab once daily [Active]; melatonin 5 mg oral cap [Active]; - PMHx: 03:50 Hypertensive disorder; altered mental status; CAD; dysphagia; CVA; metabolic df1 encephalopathy; muscle weakness; Inguinal hernia; UTI; Fall; Anxiety; cerbrebral infarction; CHF; Insomnia; E Coli; Afib; - Immunization history:: Adult Immunizations up to date, Client reports receiving the 2nd dose of the Covid vaccine. - Social history:: Smoking status: Patient denies any tobacco usage or history of. - Unable to obtain history due to: altered mental status. Screenin:24 Abuse screen: Denies threats or abuse. Denies injuries from another. Nutritional bc5 screening: No deficits noted. Tuberculosis screening: No symptoms or risk factors identified. Fall Risk No fall in past 12 months (0 pts). No secondary diagnosis (0 pts). IV access (20 points). Ambulatory Aid- None/Bed Rest/Nurse Assist (0 pts). Gait- Normal/Bed Rest/Wheelchair (0 pts) Mental Status- Overestimates/Forgets Limitations (15 pts.). Total Ordonez Fall Scale indicates Low Risk Score (25-44 pts). Fall prevention measures have been instituted. Side Rails Up X 2 Placed close to Nursing Station Frequent Obs/Assesments occuring. Assessment: 00:44 Reassessment: Pt continues to attempt to get out of bed, pull off lines and gown, bc5 combative and uncooperative. Neuro:. Cardiovascular: No deficits noted. Respiratory: No deficits noted. 01:07 Reassessment: Pt continues to remain combative, attempting to pull off monitor cords, bc5 trying to get out of stretcher, Dr. Ernandez aware. 02:00 Reassessment: Pt now calm, sleep, awakens to voice and touch,. No longer combative. bc5 Vital Signs: 00:12 BP 137 / 85; Pulse 96; Resp 19; Temp 97.8(A); Pulse Ox 97% on R/A; bc5 01:27 BP 125 / 103; Pulse 76; Resp 16; Pulse Ox 98% on R/A; bc5 03:24 BP 106 / 63; Pulse 62; Resp 15; Temp 98.6(A); Pulse Ox 100% on R/A; Pain 0/10; bc5 ED Course: 08/27 23:20 Patient arrived in ED. rn 23:20 Adriano Ernandez MD is Attending Physician. rn 08/28 00:10 Nicole Deras, JORDY is Primary Nurse. bc5 00:22 Triage completed. bc5 00:23 Notified ED physician of other Patient was combative and confused and trying to get out jb5 of the bed, verbal order was given to restrain patient with hand mittens. I along with JORDY Rivera restrained Mr. Carias to the bed for our safety and his own. 00:24 Inserted saline lock: 20 gauge in right upper arm, using aseptic technique. bc5 01:43 XRAY Chest (1 view) In Process Unspecified. EDMS 01:52 CT Head Brain wo Cont In Process Unspecified. EDMS 02:50 Ellis Orona DO is Hospitalizing Provider. rn 06:24 Placed in gown. Bed in low position. Side rails up X2. bc5 06:25 No provider procedures requiring assistance completed. bc5 06:25 Arm band placed on right ankle. bc5 Administered Medications: 08/27 23:50 Drug: Ativan (LORazepam) 0.5 mg Route: IM; Site: right vastus lateralis; bc5 08/28 00:24 Follow up: Response: No change in condition bc5 00:10 Drug: Ativan (LORazepam) 0.5 mg Route: IVP; Site: right upper arm; bc5 00:43 Follow up: Response: No change in condition bc5 00:39 Drug: NS 0.9% 500 ml Route: IV; Rate: bolus; Site: right upper arm; bc5 06:26 Follow up: IV Status: Completed infusion; IV Intake: 500ml bc5 00:39 Drug: Rocephin (cefTRIAXone) 1 grams Route: IV; Rate: calculated rate; Site: right 5 upper arm; 01:16 Follow up: IV Status: Completed infusion bc5 01:05 Drug: Ativan (LORazepam) 0.5 mg Route: IVP; Site: right upper arm; bc5 01:23 Follow up: Response: No change in condition bc5 01:22 Drug: Demerol (meperidine) 12.5 mg Route: IVP; Site: right forearm; bc5 02:42 Follow up: Response: No adverse reaction; Anxiety decreased bc5 Intake: 06:26 IV: 500ml; Total: 500ml. bc5 Outcome: 02:49 Discharge ordered by MD. rn 02:51 Decision to Hospitalize by Provider. rn 18:29 Patient left the ED. jd3 Signatures: Dispatcher [employer] EDMS Adriano Ernandez MD MD rn Broussard, Jennifer jb5 Davies, Jonathon, RN RN Nicole Barron RN RN [id number] Mandy Warren df1 Corrections: (The following items were deleted from the chart) 01:16 01:14 Reassessment: bc5 bc5
--- NOTE | 2021-08-28 02:52 | EDPHYS ---
Physician Documentation [facility] Name: Luis Fernando Carias Age: 86 yrs Sex: Male : 1935 Arrival Date: 08/27/2021 Time: 23:20 Bed 3 Private MD: ED Physician Adriano Ernandez HPI: 08/27 23:23 This 86 yrs old Male presents to ER via Unassigned with complaints of Altered rn mental status. 23:23 The patient presents with agitation, confusion, disorientation. Onset: The rn symptoms/episode began/occurred at an unknown time. Possible causes: unknown. Associated signs and symptoms: Pertinent positives: agitation, confusion, Pertinent negatives: abdominal pain, chest pain, headache, seizure, shortness of breath. Current symptoms: In the emergency department the patient's symptoms are unchanged from the initial presentation. The patient has experienced a previous episode. It is unknown whether or not the patient has recently seen a physician. Per EMS report, 911 called by [facility] for agitation and confusion. Per report patient has baseline dementia and dysphasia, unclear last known normal, noticed to be confused and agitated this evening by nursing. No evidence of trauma. Patient was seen ambulating and seemed confused.. 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 - Social history:: Smoking status: Patient denies any tobacco usage or history of. - Unable to obtain history due to: altered mental status. ROS: 08/27 23:23 Constitutional: Negative for fever, chills, and weight loss, Eyes: Negative for injury, rn pain, redness, and discharge, Neck: Negative for injury, pain, and swelling, Cardiovascular: Negative for chest pain, palpitations, and edema, Respiratory: Negative for shortness of breath, cough, wheezing, and pleuritic chest pain, Abdomen/GI: Negative for abdominal pain, nausea, vomiting, diarrhea, and constipation, Back: Negative for injury and pain, : Negative for injury, bleeding, discharge, and swelling, MS/Extremity: Negative for injury and deformity, Skin: Negative for injury, rash, and discoloration, Neuro: Negative for headache, weakness, numbness, tingling, and seizure. Exam: 23:23 Constitutional: Thin male, agitated, using all 4 extremities and trying to climb out rn of bed. Pulling off leads and trying to remove blood pressure cuff. Calling everyone in the room bastard Head/Face: Normocephalic, atraumatic. Eyes: Periorbital areas with no swelling, redness, or edema. Neck: No masses, no meningismus Cardiovascular: Regular rate and rhythm. No pulse deficits. Respiratory: No increased work of breathing, no retractions or nasal flaring. Abdomen/GI: Soft, non-tender, nondistended Skin: Skin dry, no evidence of cellulitis MS/ Extremity: Pulses equal, no cyanosis. Neurovascular intact. Full, normal range of motion. Equal circumference. Neuro: Awake and alert, GCS 15, oriented to person but not place or time. Moves all 4 extremities and trying to climb out of bed. Mumbling speech but when speaking words are easily understandable and does not seem slurred. Vital Signs: 08/28 00:12 BP 137 / 85; Pulse 96; Resp 19; Temp 97.8(A); Pulse Ox 97% on R/A; bc5 01:27 BP 125 / 103; Pulse 76; Resp 16; Pulse Ox 98% on R/A; bc5 03:24 BP 106 / 63; Pulse 62; Resp 15; Temp 98.6(A); Pulse Ox 100% on R/A; Pain 0/10; bc5 MDM: 14 23:20 Patient medically screened. rn 08/28 01:33 ED course: Having difficulty sedating patient enough to get imaging. Tried small doses rn of Ativan but even a cumulative dose could not sedate patient. Gave him Demerol in case he was in pain and seems to be helping. Barely able to obtain imaging at this time.. 02:47 Differential Diagnosis: CVA, electrolyte abnormality, hypoglycemia, intracranial bleed, rn pneumonia, TIA, UTI, volume depletion. Data reviewed: vital signs, nurses notes, lab test result(s), EKG, radiologic studies, CT scan, plain films, and as a result, I will admit patient. Data interpreted: panel monitor: rate is 76 beats/min, rhythm is normal sinus rhythm, regular, with no ectopy, Interpretation: normal rate, normal rhythm, Pulse oximetry: on room air is 98 %. Interpretation: normal. Test interpretation: by ED physician or midlevel provider: plain radiologic studies, Chest x-ray negative for pneumonia or pneumothorax. Counseling: I had a detailed discussion with the patient and/or guardian regarding: the historical points, exam findings, and any diagnostic results supporting the discharge/admit diagnosis, lab results, radiology results, the need for further work-up and treatment in the hospital. Response to treatment: the patient's symptoms have mildly improved after treatment, and as a result, I will admit patient. Admission orders: after a detailed discussion of the patient's condition and case, the admit orders are written by me. ED course: No acute findings on CT head. [facility] contacted and stated not at baseline. Will admit to hospitalist service for further care and possible MRI.. 08/27 23:21 Order name: CBC with Diff; Complete Time: : rn 08/27 23:21 Order name: Basic Metabolic Panel; Complete Time: : rn 08/27 23:21 Order name: Urine Culture rn 08/27 23:21 Order name: Urine Microscopic Only; Complete Time: 00:27 rn 08/27 23:21 Order name: Blood Culture Adult (2) rn 08/27 23:21 Order name: Procalcitonin; Complete Time: : rn 08/27 23:22 Order name: PT-INR; Complete Time: rn 08/27 23:22 Order name: Ptt, Activated; Complete Time: : rn 08/27 23:22 Order name: Lactate; Complete Time: 01: rn 08/27 23:34 Order name: Urine Dipstick-Ancillary EDNJ 08/28 00:20 Order name: SARS-COV-2 RT PCR; Complete Time: 01:19 EDNJ 08/28 06:02 Order name: Troponin I EDNJ 08/28 06:02 Order name: Lipid Profile EDMS 08/27 23:21 Order name: CT Head Brain wo Cont rn 08/27 23:21 Order name: XRAY Chest (1 view) rn 08/28 06:02 Order name: T4 Free EDNJ 08/28 06:02 Order name: Thyroid Stimulating Hormone EDNJ 08/28 07:01 Order name: Basic Metabolic Panel EDNJ 08/28 08:49 Order name: US EDNJ 08/28 09:25 Order name: MRI EDNJ 08/28 09:41 Order name: MRI EDMS 08/28 09:48 Order name: MRI EDNJ 08/28 13:06 Order name: Troponin I EDNJ 08/28 15:14 Order name: Glucose, Ancillary Testing EDNJ 08/27 23:21 Order name: IV Start; Complete Time: 00:11 rn 08/27 23:21 Order name: Urine Dipstick-Ancillary (obtain specimen); Complete Time: 00:11 rn 08/27 23:21 Order name: EKG; Complete Time: 23:22 rn 08/27 23:21 Order name: EKG - Nurse/Tech; Complete Time: 03:31 rn 08/27 23:22 Order name: Glucose Level; Complete Time: 00:11 rn Administered Medications: 08/27 23:50 Drug: Ativan (LORazepam) 0.5 mg Route: IM; Site: right vastus lateralis; 5 08/28 00:24 Follow up: Response: No change in condition bc5 00:10 Drug: Ativan (LORazepam) 0.5 mg Route: IVP; Site: right upper arm; bc5 00:43 Follow up: Response: No change in condition bc5 00:39 Drug: NS 0.9% 500 ml Route: IV; Rate: bolus; Site: right upper arm; bc5 06:26 Follow up: IV Status: Completed infusion; IV Intake: 500ml bc5 00:39 Drug: Rocephin (cefTRIAXone) 1 grams Route: IV; Rate: calculated rate; Site: right bc5 upper arm; 01:16 Follow up: IV Status: Completed infusion bc5 01:05 Drug: Ativan (LORazepam) 0.5 mg Route: IVP; Site: right upper arm; bc5 01:23 Follow up: Response: No change in condition 5 01:22 Drug: Demerol (meperidine) 12.5 mg Route: IVP; Site: right forearm; bc5 02:42 Follow up: Response: No adverse reaction; Anxiety decreased bc5 Disposition Summary: 08/28/21 02:51 Hospitalization Ordered Hospitalization Status: Inpatient Admission rn Provider: Ellis Orona rn Condition: Stable(08/28/21 02:51) rn Problem: new(08/28/21 02:51) rn Symptoms: have improved(08/28/21 02:51) rn Bed/Room Type: Standard rn Location: Telemetry/MedSurg (Inpatient)(08/28/21 16:51) eb Room Assignment: [facility](08/28/21 16:51) eb Diagnosis - Altered mental status, unspecified(08/28/21 02:51) rn - Delirium due to known physiological condition(08/28/21 02:51) rn - Restlessness and agitation(08/28/21 02:51) rn Forms: - Medication Reconciliation Form rn - SBAR form rn Signatures: Dispatcher [employer] EDNJ Adriano Ernandez MD MD rn Attema, Lee, TAPE FASTENER MACHINE OPERATOR-C TAPE FASTENER MACHINE OPERATOR-Cla1 Gisela Mccray, RN RN Liberty Veronica Bella, RN RN bc5 Mandy Warren df1 Corrections: (The following items were deleted from the chart) 00:20 08/27 23:22 CORONAVIRUS+MR.LAB.BRZ ordered. EDNJ EDNJ 08/28 02:50 02:49 Home rn rn 02:50 02:49 new rn rn 02:50 02:49 have improved rn rn 02:50 02:49 Stable rn rn 02:50 02:49 Altered mental status, unspecified rn rn 02:50 02:49 Delirium due to known physiological condition rn rn 02:50 02:49 Restlessness and agitation rn rn 03:41 02:51 Telemetry/MedSurg (Inpatient) rn cg 03:41 02:51 rn cg 16:51 03:41 [facility] ER HOLD cg eb 16:51 03:41 ERHOLD- cg eb
--- NOTE | 2021-08-28 03:32 | P.HP ---
Certification for Inpatient Patient admitted to: Inpatient With expected LOS: >2 Midnights Patient will require the following post-hospital care: None Practitioner: I am a practitioner with admitting privileges, knowledge of patient current condition, hospital course, and medical plan of care. Services: Services provided to patient in accordance with Admission requirements found in Title 42 Section 412.3 of the Code of Federal Regulations Patient History Date of Service: 08/28/21 Primary Care Provider: halfway doctor Reason for admission: Altered mental status History of Present Illness: 86-year-old male with history of dementia, dysphagia, weakness, hypertension presents emergency department for altered mental status. Patient currently is a resident of [facility], [facility] staff that reports on a day-to-day basis patient is oriented, very keen and able to help care for himself, this evening he was last seen normal around 8 PM, was found to be walking the hallways, disoriented unable to follow simple instructions and not sure where he was. Upon arrival by EMS on scene patient was appearing to have some expressive aphasia. Patient was transferred to the emergency department, upon arrival emergency department patient mental status had improved. Delirious/encephalopathic but was speaking clearly without any slurred speech or facial droop, moving all extremities without difficulty concentrating out of bed. Patient was evaluated in the emergency department labs were significant for hemoglobin 11.9 hematocrit 35.7 - for UTI, Covid negative, CT head negative for any acute findings chest x-ray unremarkable. Patient still agitated/delirious, ED provider wishes to admit under observation for further evaluation of altered mental status. Allergies Penicillins Allergy (Verified 05/28/21 18:57) Hives/Rash Home Medications: Metoprolol Tartrate [Lopressor*] 25 mg PO BEDTIME 05/28/21 Aspirin [Aspirin EC 81 MG] 81 mg PO BEDTIME 05/29/21 levoFLOXacin [Levaquin*] 750 mg PO DAILY 4 Days #4 tab 06/02/21 - Past Medical/Surgical History Diabetic: No -: HTN -: Dementia -: tonsillectomy -: appendectomy Psychosocial/ Personal History: Lives at [facility] - Family History Father -: Cancer Mother -: Stroke - Social History Smoking Status: Unknown if ever smoked Alcohol use: No CD- Drugs: No Caffeine use: Yes Place of Residence: Home Review of Systems is unable to be obtained Physical Examination - Physical Exam General: Alert, Oriented x1 HEENT: Atraumatic, Mucous membr. moist/pink Neck: Supple Respiratory: Clear to auscultation bilaterally, Normal air movement Cardiovascular: No edema, Normal S1 S2 Capillary refill: <2 Seconds Gastrointestinal: Normal bowel sounds, Soft and benign Musculoskeletal: No contractures, No erythema, No tenderness Integumentary: No significant lesion, No tenderness/swelling, No erythema Neurological: Normal speech, Normal strength at 5/5 x4 extr, Normal tone - Studies Laboratory Data (last 24 hrs) 08/28/21 00:05: PT 10.5, INR 0.91, APTT 27.7 08/28/21 00:05: Sodium 137, Potassium 3.8, BUN 17, Creatinine 1.27, Glucose 98 08/28/21 00:05: WBC 9.70, Hgb 11.9 L, Hct 35.7 L, Plt Count 396 Assessment and Plan - Plan Assessment: Altered mental status history of dementia/periodic episodes of agitation Hypertension Plan: Altered mental status history of dementia/periodic episodes of agitation: Patient reportedly significant different from baseline mental status according to [facility] staff. Patient reportedly is oriented x3 at baseline, currently only oriented x1, agitated and constantly trying to get a bed. Patient did receive sedation in the emergency department with Ativan/Demerol. Labs are unremarkable chest x-ray markable CT head negative. Nursing staff at [facility] had some concern for expressive aphasia, will attempt to rule out CVA with MRI although this may be difficult to obtain given patient's agitation and mental status currently. Neurology consulted for additional assistance. Swallow screen ordered, n.p.o. until patient passes this if he passes we will continue with heart healthy diet, aspirin, statin, folic acid. Hypertension: Obtain and continue medication. Provide medication as needed at this time. DVT PPX: SCD Code status: Full Discharge Plan: Jail Plan to discharge in: 48 Hours - Advance Directives Does patient have a Living Will: No Does patient have a Durable POA for Healthcare: No - Code Status/Comfort Care Code Status Assessed: Yes (Full code) Critical Care: No Time Spent Managing Pts Care (In Minutes): 55
[2021-08-28 04:28] VITALS: BMI 23.6
[2021-08-28] MEDS ORDERED: MORPHINE 2 MG/ML SYR IV PRN (04:28)
[2021-08-28] MEDS: D5 0.45 NS 1,000 ML IV SCH ×2 (04:28→18:57)
[2021-08-28] MEDS ORDERED: ONDANSETRON 4 MG/2 ML VIAL IV PRN (04:28)
[2021-08-28] MEDS ORDERED: D5 0.45 NS 1,000 ML IV ONE (05:31)
[2021-08-28 06:02] LABS: Thyroid Stimulating Hormone 1.84 uIU/mL (0.360-3.740); Troponin I 0.07 ng/mL (0.0-0.045)
--- NOTE | 2021-08-28 06:22 | P.PN ---
Subjective Date of Service: 08/28/21 Primary Care Provider: shelter doctor Chief Complaint: Altered mental status Subjective: Other (Patient with increased somnolence this morning. Some agitation reported earlier requiring medication) Physical Examination - Studies Laboratory Data (last 24 hrs) 08/28/21 00:05: PT 10.5, INR 0.91, APTT 27.7 08/28/21 00:05: Sodium 137, Potassium 3.8, BUN 17, Creatinine 1.27, Glucose 98 08/28/21 00:05: WBC 9.70, Hgb 11.9 L, Hct 35.7 L, Plt Count 396 Assessment & Plan Discharge Plan: Long Term Plan to discharge in: 48 Hours Physician Review Additional Text: COVID: negative MRI Brain: COMPARISON: head CT August 28, 2020 TECHNIQUE: Axial, sagittal, and coronal magnetic images of the brain were obtained. 15 cc MultiHance administered intravenously FINDINGS: Mild to moderate signal within periventricular, deep and subcortical white matter probably ischemic changes secondary to small vessel disease The ventricles are normal in caliber. Small left frontal scalp lipoma Diffusion-weighted/ ADC mapping sequences do not demonstrate evidence of an acute infarction. No abnormal enhancement within the brain is seen. An extra-axial fluid collection is not noted. Fluid within the sinuses/mastoids is not seen IMPRESSION: No acute intracranial abnormality displayed MRA Brain: COMPARISON: None. TECHNIQUE: Magnetic resonance angiogram was performed. 3D MIPS reconstruction performed FINDINGS: The anterior cerebral, left middle cerebral, posterior cerebral, distal internal carotid and basilar arteries do not demonstrate a significant stenosis. origin right posterior cerebral artery 2 millimeter bulge of the proximal aspect of the M2 segment right middle cerebral artery IMPRESSION: A 2 millimeter bulge of the proximal aspect of the M2 segment right middle artery is equivocal for a tiny aneurysm.. MRA Neck: COMPARISON: None. TECHNIQUE: Magnetic resonance angiogram of the neck was performed. 19 cc MultiHance was administered intravenously. 3D MIPS reconstruction performed FINDINGS: Mild plaque visualized within common carotid, internal carotid and external carotid arteries. The vertebral arteries are codominant without visualization of an abnormality. IMPRESSION: Mild plaque in the carotid arteries NASCET criteria used. Carotid doppler: COMPARISON: None FINDINGS: The velocity of the right internal carotid artery equals 100 cm/sec. The right ICA/CCA ratio 1. The velocity of the left internal carotid artery equals 72 cm/sec. The left IC A/CCA ratio 0.9 Mild plaque is present within the carotid arteries. The vertebral arteries demonstrate antegrade flow IMPRESSION: Mild plaque within the carotid arteries without evidence of a hemo dynamically significant stenosis NASCET criteria used. Physical exam: General: Patient with increased somnolence this morning. Patient did receive Ativan earlier for agitation dementia HEENT: Atraumatic, Mucous membr. moist/pink Neck: Supple Respiratory: Clear to auscultation bilaterally, Normal air movement Cardiovascular: No edema, Normal S1 S2 Capillary refill: <2 Seconds Gastrointestinal: Normal bowel sounds, Soft and benign Musculoskeletal: No contractures, No erythema, No tenderness Integumentary: No significant lesion, No tenderness/swelling, No erythema Neurological: Patient able to move all fours. No focal deficits noted. Patient with underlying dementia. Increased somnolence noted due to recent administration of Ativan Impression: Acute encephalopathy etiology unknown complicated with history of dementia with periodic episodes of agitation Hypertension Plan: Acute encephalopathy etiology unknown complicated with history of dementia with periodic episodes of agitation: MRI shows no evidence of acute stroke. 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 Procalcitonin negative. White count unremarkable. Chest x-ray unremarkable. No evidence of infection noted. Patient off antibiotics. Continue with medication for agitation. Will try to get more information from [facility] and family. Neurology consulted. Await recommendation. Will need to address advanced directives and plan of care. If this is related to his dementia and behavioral issues patient may require transfer to geriatric psychiatry for further evaluation. Continue thiamine, folic acid. DVT prophylaxis in place. Physical therapy and Occupational Therapy to evaluate. Speech to evaluate as well. We will try to obtain more information from family Hypertension: Blood pressure stable at this time. Monitor closely. Continue wi th IV medication as needed DVT PPX: Lovenox Code status: Full Discharge Plan: Long Term Time Spent Managing Pts Care (In Minutes): 55
[2021-08-28 07:01] LABS: Potassium 4.2 mmol/L (3.5-5.1)
--- NOTE | 2021-08-28 08:48 | RAD REPORT ---
EXAM DESCRIPTION: USCarotid Artery Nwpmxennf32/15/2021 6:17 am CLINICAL HISTORY: Alteration of consciousness COMPARISON: None FINDINGS: The velocity of the right internal carotid artery equals 100 cm/sec. The right ICA/CCA rat io 1. The velocity of the left internal carotid artery equals 72 cm/sec. The left ICA/CCA ratio 0.9 Mild plaque is present within the carotid arteries. The vertebral arteries demonstrate antegrade flow IMPRESSION: Mild plaque within the carotid arteries without evidence of a hemodynamically significan t stenosis NASCET criteria used. Mild 0-49% stenosis Moderate 50-69% stenosis Severe 70-99% stenosis
[2021-08-28] MEDS: ASPIRIN EC 81 MG TAB PO SCH (09:00)
[2021-08-28] MEDS ORDERED: FAMOTIDINE 20 MG TAB PO SCH (09:00)
[2021-08-28] MEDS: ENOXAPARIN 40 MG/0.4 ML SQ SCH (09:00)
[2021-08-28] MEDS ORDERED: FOLIC ACID 1 MG TABLET PO SCH (09:00)
--- NOTE | 2021-08-28 09:25 | RAD REPORT ---
EXAM DESCRIPTION: MRI - Brain W/Wo Cont - 08/28/2021 8:39 am CLINICAL HISTORY: Alteration of consciousness/confusion COMPARISON: head CT August 28, 2020 TECHNIQUE: Axial, sagittal, and coronal magnetic images of the brain were obtained. 15 cc MultiHance administered intravenously FINDINGS: Mild to moderate signal within periventricular, deep and subcortical white matter probably ischemic changes secondary to small vessel disease The ventricles are normal in caliber. Small left frontal scalp lipoma Diffusion-weighted/ ADC mapping sequences do not demonstrate evidence of an acute infarction. No abnormal enhancement within the brain is seen. An extra-axial fluid collection is not noted. Fluid within the sinuses/mastoids is not seen IMPRESSION: No acute intracranial abnormality displayed
--- NOTE | 2021-08-28 09:41 | RAD REPORT ---
EXAM DESCRIPTION: MRI - MRA Neck W/Wo Cont - 08/28/2021 8:40 am CLINICAL HISTORY: Alteration consciousness/confusion COMPARISON: None. TECHNIQUE: Magnetic resonance angiogram of the neck was performed. 19 cc MultiHance was administered intravenously. 3D MIPS reconstruction performed FINDINGS: Mild plaque visualized within common carotid, internal carotid and external carotid arteri es. The vertebral arteries are codominant without visualization of an abnormality. IMPRESSION: Mild plaque in the carotid arteries NASCET criteria used. Mild 0-49% stenosis Moderate 50-69% stenosis Severe 70-99% stenosis
--- NOTE | 2021-08-28 09:47 | RAD REPORT ---
EXAM DESCRIPTION: MRI - MRA Head Wo Cont - 08/28/2021 8:40 am CLINICAL HISTORY: Alteration of consciousness/confusion COMPARISON: None. TECHNIQUE: Magnetic resonance angiogram was performed. 3D MIPS reconstruction performed FINDINGS: The anterior cerebral, left middle cerebral, posterior cerebral, distal internal carotid a nd basilar arteries do not demonstrate a significant stenosis. origin right posterior cerebral artery 2 millimeter bulge of the proximal aspect of the M2 segment right middle cerebral artery IMPRESSION: A 2 millimeter bulge of the proximal aspect of the M2 segment right middle artery is equ ivocal for a tiny aneurysm..
[2021-08-28] MEDS ORDERED: ASPIRIN 81 MG CHEWABLE TABLET ONE (10:11)
[2021-08-28] MEDS ORDERED: FOLIC ACID 1 MG TABLET ONE (10:11)
[2021-08-28] MEDS ORDERED: FAMOTIDINE 20 MG TAB ONE (10:11)
[2021-08-28] MEDS ORDERED: ENOXAPARIN 40 MG/0.4 ML SQ ONE (10:11)
[2021-08-28] MEDS ORDERED: LORazepam 2 MG/ML VIAL IV PRN (10:17)
[2021-08-28] MEDS: HALOPERIDOL LACT 5 MG/ML INJ IV PRN ×2 (10:21→22:33)
[2021-08-28] MEDS ORDERED: SODIUM CHLORIDE 0.9% 10ML INJ IV PRN (10:21)
[2021-08-28] MEDS ORDERED: HALOPERIDOL LACT 5 MG/ML INJ ONE (10:40)
[2021-08-28] MEDS ORDERED: METOPROLOL TARTRATE 5 MG/5 ML INJ IV ONE (11:23)
[2021-08-28] MEDS ORDERED: NA CHLORIDE 0.9% 1,000 ML ONE (11:43)
--- NOTE | 2021-08-28 13:17 | RAD REPORT ---
EXAM DESCRIPTION: CT - Head Brain Wo Cont - 08/28/2021 6:13 am CLINICAL HISTORY: 86 years, Male, AMS COMPARISON: 05/28/2021. FINDINGS: Multiple transaxial tomograms of the brain were obtained from the base of the skull to the vertex without contrast. 2-D multiplanar reformats and the coronal and sagittal plane were performed and reviewed. This exam was performed according to our departmental dose-optimization protocol, which includes auto mated exposure control, adjustment of the mA and/or kV according to patient size and/or use of iterat susie reconstruction technique. Brain parenchyma demonstrate lytic the prominence of the sulci and gyri are corresponding to mild cer ebral and cerebellar atrophy. There is minimal periventricular white matter changes of microvascular ischemia. There is no midline shift and/or mass effect. There is no evidence for acute intracranial h emorrhage. Lateral ventricles and cisterns displace normal appearance. No intra or extra axial fl uid collections were seen. The calvarium is intact with no evidence for fracture. The visualized port ions of the paranasal sinuses and orbits demonstrate to be clear. IMPRESSION: No acute intracranial hemorrhage identified. Mild brain atrophy with minimal periventricular white matter changes of microvascular ischemia. Electronically signed by: Jhonatan Alonso MD 08/28/2021 2:13 AM CDT Due to temporary technical issues with the PACS/Fluency reporting system, reports are being signed by the in house radiologist without review as a courtesy to ensure prompt reporting. The interpreting r adiologist is fully responsible for the content of the report.
--- NOTE | 2021-08-28 13:27 | RAD REPORT ---
EXAM DESCRIPTION: [facility] Single View08/28/2021 1:43 am CLINICAL HISTORY: 86 years, Male, AMS COMPARISON: None. FINDINGS: Single view of the chest was obtained portable. No prior films are available for compariso n. Day lung volume is slightly decreased. External EKG leads within the [id number] limits diagnosi s. The cardiomediastinal silhouette demonstrate to be unremarkable. The heart is not enlarged. There is intimal aortic arch calcifications. Costophrenic angles are sharp. No areas of consolidation or masses are seen. Minimal atelectatic changes lung bases. The rest of the soft tissue and bony struc tures demonstrate to be unremarkable. IMPRESSION: Slight decreased lung volume. No acute cardiopulmonary abnormality is detected. Minimal atelectatic changes lung bases. Electronically signed by: Jhonatan Alonso MD 08/28/2021 2:12 AM CDT Due to temporary technical issues with the PACS/Fluency reporting system, reports are being signed by the in house radiologist without review as a courtesy to ensure prompt reporting. The interpreting r adiologist is fully responsible for the content of the report.
[2021-08-28 18:48] VITALS: O2SAT 100
[2021-08-28] MEDS ORDERED: ATORVASTATIN 40 MG TAB PO SCH (21:00)
--- NOTE | 2021-08-28 21:58 | CON ---
Reason For Consultation: Consultation was called because of altered mental status. History Of Present Illness: Mr. Carias is an 86-year-old right-handed patient with demen tia and hypertension, who comes to [facility] from the [facility], with more conf usion. At baseline, he is reportedly day-to-day oriented and able to follow instructions, and at adarsh es more disoriented. On arrival to the hospital, he was found walking the hallways, disoriented, katt ble to follow commands and did not, however, have any focal changes in terms of face, arm, or leg num bness or weakness. His workup at [facility] included a head CT scan and brain MRI, which sh owed no ischemic or hemorrhagic change; however, the study was remarkable for moderate small vessel i schemic disease and a possible 2 mm what was in the proximal aspect of the M2 segment of the right mi ddle cerebral artery, either a tiny aneurysm or equivocal for that. His blood work showed no elevati on in the white blood cell count. His hemoglobin was 11.9, platelets normal. Coagulation panel unre markable. Chemistries showed no significant abnormalities. Procalcitonin was unremarkable. Lactic acid normal. His HDL 56, LDL 137. His urinalysis did show 1+ blood, 10 to 20 red blood cells, 5 to 10 white blood cells, less than 20 bacteria. COVID-19 test was negative. His chest x-ray showed sli ght decrease in lung volume. No acute cardiopulmonary issues. Minimal atelectasis changes at the [place] ng bases. Carotid artery ultrasound showed no evidence of hemodynamically significant stenosis. Past Medical History: As noted. Allergies: PENICILLIN, CAUSES HIVES. Medications: At home, metoprolol 25 mg at bedtime, aspirin 81 mg daily. He is on levofloxacin 750 m g daily for 4 days. Family History: Father, cancer. Stroke in mother. Surgical History: Appendectomy, tonsillectomy. Review of Systems: Not reliable at this point. Social History: Unknown if he smokes. Does not smoke currently or drink alcohol. Physical Examination: Vital Signs: Blood pressure 125/60, pulse 53, respiratory rate 16, temperature 99. General: Mr. Carias is in the emergency room. He is oriented to person. He did not know the [facility], about the year and thought it was October when it is August. He followed the instructi ons to move his arms and lift his legs, and these were moved equally well. HEENT: He appears normocephalic, atraumatic. His sclerae are anicteric. Oropharynx is moist. Neck: Supple. Chest: Clear. Heart: Regular. Extremities: Show no edema or cyanosis. Neuro: He is alert and did follow his instructions to move his arms and legs equally well. Cranial nerves show no focal deficits. His motor examination in the upper and lower extremities was symmetri c, although very difficult to fully assess strength. Sensation, appeared he responded equally well t o touch in the arms and legs. Unable to fully assess coordination, but he did not have any tremors o r obvious dysmetria with movement. Cannot assess his gait. Tone was normal. Symmetric reflexes. Assessment: Mr. Carias is an 86-year-old patient with likely acute on chronic encephalopathy. He does appear to have a vascular dementia from his MRI and his reported history. Unclear why this curr ent episode that prompted hospitalizations occurred. There is no evidence of urinary tract infection , systemic infection, lung infection, or electrolyte abnormalities. It is possible he may have had a seizure-type activity or at least complex partial one. At some point, he may benefit from a routine electroencephalogram or monitoring study if indicated. Plan: 1.He may be discharged back to the [facility]. 2.He may benefit from EMG nerve conduction at some point. 3.Continue with his management of comorbid conditions as noted. 4.He may follow up in Dr. Russell's clinic a month later. WILLIAM Voice ID: [id number] Report ID: [id number]
[2021-08-29] MEDS: HALOPERIDOL LACT 5 MG/ML INJ IV PRN ×2 (04:52→09:45)
--- NOTE | 2021-08-29 06:00 | P.DS ---
Admission Date: 08/28/21 Discharge Date: 08/29/21 Primary Care Provider: shelter doctor Disposition: TRANSFER TO INTERMEDIATE Discharge Condition: GOOD Reason for Admission: Altered mental status Consultations: none Procedures: COVID: negative MRI Brain: COMPARISON: head CT August 28, 2020 TECHNIQUE: Axial, sagittal, and coronal magnetic images of the brain were obtained. 15 cc MultiHance administered intravenously FINDINGS: Mild to moderate signal within periventricular, deep and subcortical white matter probably ischemic changes secondary to small vessel disease The ventricles are normal in caliber. Small left frontal scalp lipoma Diffusion-weighted/ ADC mapping sequences do not demonstrate evidence of an acute infarction. No abnormal enhancement within the brain is seen. An extra-axial fluid collection is not noted. Fluid within the sinuses/mastoids is not seen IMPRESSION: No acute intracranial abnormality displayed MRA Brain: COMPARISON: None. TECHNIQUE: Magnetic resonance angiogram was performed. 3D MIPS reconstruction performed FINDINGS: The anterior cerebral, left middle cerebral, posterior cerebral, distal internal carotid and basilar arteries do not demonstrate a significant stenosis. origin right posterior cerebral artery 2 millimeter bulge of the proximal aspect of the M2 segment right middle cerebral artery IMPRESSION: A 2 millimeter bulge of the proximal aspect of the M2 segment right middle artery is equivocal for a tiny aneurysm.. MRA Neck: COMPARISON: None. TECHNIQUE: Magnetic resonance angiogram of the neck was performed. 19 cc MultiHance was administered intravenously. 3D MIPS reconstruction performed FINDINGS: Mild plaque visualized within common carotid, internal carotid and external carotid arteries. The vertebral arteries are codominant without visualization of an abnormality. IMPRESSION: Mild plaque in the carotid arteries NASCET criteria used. Carotid doppler: COMPARISON: None FINDINGS: The velocity of the right internal carotid artery equals 100 cm/sec. The right ICA/CCA ratio 1. The velocity of the left internal carotid artery equals 72 cm/sec. The left ICA/CCA ratio 0.9 Mild plaque is present within the carotid arteries. The vertebral arteries demonstrate antegrade flow IMPRESSION: Mild plaque within the carotid arteries without evidence of a hemodynamically significant stenosis NASCET criteria used. Medical Problem List: Acute on chronic encephalopathy secondary to vascular dementia Hypertension Hyperlipidemia Acute renal insufficiency Brief History of Present Illness: 86-year-old male with history of dementia, dysphagia, weakness, hypertension presents emergency department for altered mental status. Patient currently is a resident of [facility]. Nursing staff reported that patient is oriented on a day-to-day basis. He is usually able to take care of himself. Apparently he was having some difficulty with his mentation. There was some possible evidence of expressive aphasia. Patient was brought into the emergency room. Patient had some agitation required medication. CT head unremarkable. Covid test negative. No evidence of infection noted. Patient admitted for further evaluation and treatment. Hospital Course: Patient presented with acute on chronic encephalopathy likely related to underlying vascular dementia. MRI shows chronic ischemic changes. No acute stroke noted. 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 No evidence of infection at this time. He appears to be at his baseline level. Neurology was consulted. No further intervention was recommended at this time. Patient may continue with aspirin 81 mg daily, folic acid 1 mg daily, and thiamine 100 mg daily. Neurology recommended possible medication for Alzheimer's in the near future. This can be done with the help of his residential physician. Aricept or Namenda can be considered. Fall and aspiration precaution in place. She may continue with pured diet. Neurology recommends possible EEG in the future to rule out seizure. This can be done as an outpatient. Recommend follow-up with neurology in 2 to 4 weeks to follow-up as hospitalization to further address and monitor. Patient with hypertension. Overall stable. Patient may continue with metoprolol 25 mg at bedtime. Recommend to maintain blood pressure less than 130/80. If blood pressures remain above 140/90 further adjustment can be done by residential physician. Hold medication if blood pressure systolic less than 110 or heart rate less than 50. Patient with hyperlipidemia. LDL 137. Recommend to continue Lipitor 40 mg daily. Recommend to recheck fasting lipid panel in 4 to 6 weeks to monitor his progress. Patient had mild renal sufficiency. Patient was given IV fluids with improvement. Patient back to baseline. Vital Signs/Physical Exam: Temp Pulse Resp BP Pulse Ox 97.4 F 60 16 137/64 98 08/29/21 04:00 08/29/21 04:00 08/29/21 04:00 08/29/21 04:00 08/29/21 04:00 General: Alert, In no apparent distress, Demented HEENT: Atraumatic Neck: Supple Respiratory: Clear to auscultation bilaterally Cardiovascular: Normal pulses, Regular rate/rhythm Gastrointestinal: Normal bowel sounds, No ascites Musculoskeletal: No erythema, No tenderness, No warmth Integumentary: No erythema, No warmth, No cyanosis Neurological: Dementia (Dementia) Laboratory Data at Discharge: WBC 9.70 K/uL (4.3-10.9) 08/28/21 00:05 Hgb 11.9 g/dL (13.6-17.9) L 08/28/21 00:05 Hct 35.7 % (39.6-49.0) L 08/28/21 00:05 Plt Count 396 K/uL (152-406) 08/28/21 00:05 PT 10.5 SECONDS (9.5-12.5) 08/28/21 00:05 INR 0.91 08/28/21 00:05 APTT 27.7 SECONDS (24.3-36.9) 08/28/21 00:05 Sodium 140 mmol/L (136-145) 08/28/21 05:10 Potassium 4.2 mmol/L (3.5-5.1) 08/28/21 05:10 BUN 16 mg/dL (7-18) 08/28/21 05:10 Creatinine 1.17 mg/dL (0.55-1.3) 08/28/21 05:10 Glucose 95 mg/dL (74-106) 08/28/21 05:10 Troponin I 0.02 ng/mL (0.0-0.045) 08/28/21 12:40 Triglycerides 79 mg/dL (<150) 08/28/21 05:10 Cholesterol 209 mg/dL (<200) H 08/28/21 05:10 HDL Cholesterol 56 mg/dL (40-60) 08/28/21 05:10 Cholesterol/HDL Ratio 3.73 08/28/21 05:10 Home Medications: Metoprolol Tartrate [Lopressor*] 25 mg PO BEDTIME 05/28/21 Aspirin [Aspirin EC 81 MG] 81 mg PO BEDTIME 05/29/21 Atorvastatin Calcium [Lipitor] 40 mg PO BEDTIME #30 tab 08/29/21 Folic Acid 1 mg PO DAILY #90 tablet 08/29/21 Thiamine HCl [Vitamin B-1*] 100 mg PO DAILY #90 tablet 08/29/21 New Medications: Folic Acid 1 mg PO DAILY #90 tablet Atorvastatin Calcium [Lipitor] 40 mg PO BEDTIME #30 tab Physician Discharge Instructions: Patient presented with acute on chronic encephalopathy likely related to underlying vascular dementia. MRI shows chronic ischemic changes. No acute stroke noted. 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 No evidence of infection at this time. He appears to be at his baseline level. Neurology was consulted. No further intervention was recommended at this time. Patient may continue with aspirin 81 mg daily, folic acid 1 mg daily, and thiamine 100 mg daily. Neurology recommended possible medication for Alzheimer's in the near future. This can be done with the help of his residential physician. Aricept or Namenda can be considered. Fall and aspiration precaution in place. She may continue with pured diet. Neurology recommends possible EEG in the future to rule out seizure. This can be done as an outpatient. Recommend follow-up with neurology in 2 to 4 weeks to follow-up as hospitalization to further address and monitor. Patient with hypertension. Overall stable. Patient may continue with metoprolol 25 mg at bedtime. Recommend to maintain blood pressure less than 130/80. If blood pressures remain above 140/90 further adjustment can be done by residential physician. Hold medication if blood pressure systolic less than 110 or heart rate less than 50. Patient with hyperlipidemia. LDL 137. Recommend to continue Lipitor 40 mg daily. Recommend to recheck fasting lipid panel in 4 to 6 weeks to monitor his progress. Patient had mild renal sufficiency. Patient was given IV fluids with improvement. Patient back to baseline. Diet: pureed Activity: Fall precautions Followup: NONE,NONE [Primary Care Provider] - Time spent managing pt's care (in minutes): 55
[2021-08-29 06:08] LABS: Albumin 3.3 g/dL (3.4-5.0); Bilirubin Total 0.6 mg/dL (0.2-1.0); Potassium 3.9 mmol/L (3.5-5.1); Protein, Total 6.3 g/dL (6.4-8.2)
[2021-08-29] MEDS: D5 0.45 NS 1,000 ML IV SCH (07:08)
[2021-08-29] MEDS ORDERED: THIAMINE 200 MG/2 ML INJ IVP SCH (09:00)
[2021-08-29] MEDS ORDERED: THIAMINE HCL 100 MG TABLET PO SCH (09:00)
[2021-08-29] MEDS ORDERED: FOLIC ACID 5 MG/ML VIAL IVP SCH (09:00)
[2021-08-29] MEDS ORDERED: FOLIC ACID 1 MG in NA CHLORIDE 0.9% 50 ML IV SCH (09:00)
[2021-08-29] MEDS ORDERED: FOLIC ACID 1 MG TABLET PO SCH (09:00)
[2021-08-29] MEDS ORDERED: PANTOPRAZOLE 40 MG INJ IVP SCH (09:00)
[2021-08-29] MEDS: ENOXAPARIN 40 MG/0.4 ML SQ SCH (09:04)
[2021-08-29] MEDS: ASPIRIN EC 81 MG TAB PO SCH (09:05)
--- NOTE | 2021-08-29 11:45 | EKG ---
Test Date: 2021-08-28 Test Time: 02:53:46 Telephone Worker: ROMAN MEASUREMENT RESULTS: Intervals: Rate: 72 [place]: 220 QRSD: 70 QT: 376 QTc: 411 [place]: P: 64 [place]: 220 QRS: 80 T: 78 INTERPRETIVE STATEMENTS: Undetermined rhythm Early repolarization Otherwise normal ECG Compared to ECG 05/28/2021 14:26:20 Early repolarization now present Sinus rhythm no longer present Electronically Signed On 08-29-21 11:44:28 CDT by Matteo Owen
[2021-08-29 11:50] VITALS: BP 163/68; TEMP 98
[2021-08-29] MEDS ORDERED: METOPROLOL TAR 25 MG TAB PO SCH (21:00)
[2021-08-30] MEDS ORDERED: PANTOPRAZOLE 40MG TABLET PO SCH (06:30)
== END 2021-08-29 16:28 | DRG 71 ==
LOC: ER 23:17 → ERHOLD 08-28 03:34 → 2ND 08-28 17:48
PROVIDERS: ADMIT Family Medicine; ATTEND Family Medicine
DX: G93.40 Encephalopathy, unspecified (principal); F05 Delirium due to known physiological condition; R47.01 Aphasia; F01.50 Vascular dementia, unspecified severity, without behavioral disturbance, psychotic disturbance, mood disturbance, and anxiety; I25.10 Atherosclerotic heart disease of native coronary artery without angina pectoris; N28.9 Disorder of kidney and ureter, unspecified; E78.5 Hyperlipidemia, unspecified; I10 Essential (primary) hypertension; Z79.82 Long term (current) use of aspirin; Z79.899 Other long term (current) drug therapy; Z86.73 Personal history of transient ischemic attack (TIA), and cerebral infarction without residual deficits; Z88.0 Allergy status to penicillin; Z90.49 Acquired absence of other specified parts of digestive tract; Z20.822 Contact with and (suspected) exposure to COVID-19
CPT/HCPCS: 36415; 70450; 70544; 70549; 70553; 71045; 80048; 80053; 80061; 81003; 81015; 82947; 83605; 84145; 84439; 84443; 84484; 85025; 85610; 85730; 87040; 87086; 87088; 92610; 93005; 93880; 96372; 97161; 99285; A9577; C9113; J1630; J1650; J2175; J7030; J7040; J7799; U0003

== ENCOUNTER 2021-09-17 12:15 | Emergency (ER) | payer OTHER ==
[2021-09-17 13:03] LABS: Hematocrit 34.7 % (39.6-49.0); Lymphocytes % 26.9 % (15.3-44.8); MPV 6.4 fL (7.6-11.3); RBC Red Blood Cell Count 3.87 M/uL (4.33-5.43)
--- NOTE | 2021-09-17 13:03 | RAD REPORT ---
EXAM DESCRIPTION: CT - Head Brain Wo Cont - 09/17/2021 12:52 pm CLINICAL HISTORY: Alteration of awareness/confusion COMPARISON: August 2021 TECHNIQUE: Computed axial tomography of the head was obtained. IV contrast was not requested. All CT scans are performed using dose optimization technique as appropriate and may include automated exposure control or mA/KV adjustment according to patient size. FINDINGS: An intracranial bleed is not seen . The ventricles are normal in caliber. No extra-axial fluid collection is noted. Mild low-density areas within periventricular, deep and subcortical white matter likely represent isc hemic changes secondary to small vessel disease. Fluid within the sinuses/ mastoids is not seen. IMPRESSION: No acute intracranial abnormality is seen. If patient's symptoms persist MRI of the bra in would be recommended.
[2021-09-17] MEDS ORDERED: NA CHLORIDE 0.9% 500 ML ONE (13:07)
[2021-09-17 13:16] LABS: Potassium 4.4 mmol/L (3.5-5.1)
--- NOTE | 2021-09-17 13:21 | RAD REPORT ---
EXAM DESCRIPTION: RAD - Chest Single View - 09/17/2021 1:14 pm CLINICAL HISTORY: AMS COMPARISON: Chest Single View dated 08/28/2021; Chest Single View dated 05/28/2021 FINDINGS: Lines: None. Lungs: No evidence of edema or pneumonia. Pleural: No significant pleural effusions or pneumothorax. Cardiac: The heart size is within normal limits. Atherosclerosis. Bones: No acute fractures. Other: IMPRESSION: No acute cardiopulmonary disease.
[2021-09-17 14:28] LABS: Urine Blood Trace-intact (Negative); Urine Glucose Negative (Negative); Urine Protein Negative (Negative); Urine Specific Gravity 1.015 (1.005-1.030)
[2021-09-17 14:48] LABS: Urine Bacteria <20 /HPF (NONE SEEN); Urine RBC <5 /HPF (NONE SEEN)
--- NOTE | 2021-09-17 16:29 | EDPHYS ---
Physician Documentation [facility] Name: Luis Fernando Carias Age: 86 yrs Sex: Male : 1935 Arrival Date: 09/17/2021 Time: 12:17 Bed 27 Private MD: ED Physician Adriano Ernandez HPI: 09/17 16:12 This 86 yrs old Male presents to ER via EMS with complaints of Dysphagia. rn 16:12 The patient presents with agitation. Onset: The symptoms/episode began/occurred at an rn unknown time. Possible causes: unknown. Associated signs and symptoms: Pertinent positives: agitation, Pertinent negatives: abdominal pain, chest pain, combativeness, headache, seizure, shortness of breath, vomiting. Current symptoms: In the emergency department the patient's symptoms have improved. The patient has experienced similar episodes in the past. The patient has not recently seen a physician. Patient brought in by EMS for possible altered mental status from long-term. They reported noted dysphagia although patient with previous stroke and documented dysphagia. Also reported slight agitation and thought he needed further evaluation so sent to the emergency room. Patient here is ambulatory and talkative and denies any focal complaints or acute changes. Denies any chest pain or abdominal pain. Denies any focal neurological problems at this time. Patient states he does not know why he is here and does not feel like he needs to be here.. Historical: - Allergies: 12:34 PENICILLINS; vg1 - PMHx: 13:33 AFIB; Altered Mental Status; Anxiety; CAD; cerbrebral infarction; CHF; CVA; DYSPHAGIA; vg1 e coli; fall; Hypertensive disorder; inguinal hernia; insomnia; metabolic encephalopathy; MUSCLE WEAKNESS; UTI; Dementia; Dysphagia; Cognitie communication deficit; - Immunization history:: Adult Immunizations up to date, Client reports receiving the 1st dose of the Covid vaccine. - Social history:: Smoking status: Patient denies any tobacco usage or history of. - Family history:: not pertinent. - Hospitalizations: : No recent hospitalization is reported. ROS: 16:12 Constitutional: Negative for fever, chills, and weight loss, Eyes: Negative for injury, rn pain, redness, and discharge, Neck: Negative for injury, pain, and swelling, Cardiovascular: Negative for chest pain, palpitations, and edema, Respiratory: Negative for shortness of breath, cough, wheezing, and pleuritic chest pain, Abdomen/GI: Negative for abdominal pain, nausea, vomiting, diarrhea, and constipation, Back: Negative for injury and pain, : Negative for injury, bleeding, discharge, and swelling, MS/Extremity: Negative for injury and deformity, Skin: Negative for injury, rash, and discoloration, Neuro: Negative for headache, weakness, numbness, tingling, and seizure. Exam: 16:12 Constitutional: This is a well developed, well nourished patient who is awake, alert, rn and in no acute distress. Wants full conversation with me and nurse. Head/Face: Normocephalic, atraumatic. Eyes: Periorbital areas with no swelling, redness, or edema. ENT: Dry mucous membranes. No stridor Neck: Trachea midline, no thyromegaly or masses palpated, and no cervical lymphadenopathy. Supple, full range of motion without nuchal rigidity, or vertebral point tenderness. No Meningismus. Cardiovascular: Regular rate and rhythm. No pulse deficits. Respiratory: No increased work of breathing, no retractions or nasal flaring. Abdomen/GI: Soft, non-tender Skin: Warm, dry MS/ Extremity: Pulses equal, no cyanosis. Neurovascular intact. Full, normal range of motion. Equal circumference. Neuro: Awake and alert, GCS 15. Motor strength 4/5 all 4 extremities. Sensory grossly intact. Cerebellar exam normal. 16:44 ECG was reviewed by the Attending Physician. rn Vital Signs: 12:26 BP 129 / 69; Pulse 67; Resp 18; Temp 98.4(O); Pulse Ox 97% ; Weight 67.59 kg; Pain 0/10;vg1 13:00 BP 130 / 68; Pulse 74; Resp 18; Pulse Ox 100% ; vg1 14:00 BP 127 / 52; Pulse 68; Resp 17; Pulse Ox 100% ; vg1 14:30 BP 112 / 54; Pulse 76; Resp 15; Pulse Ox 97% ; vg1 15:30 BP 111 / 54; Pulse 63; Resp 15; Pulse Ox 99% ; vg1 MDM: 12:28 Patient medically screened. rn 16:23 Differential Diagnosis: CVA, electrolyte abnormality, hypoglycemia, intracranial bleed, rn pneumonia, seizure, sepsis, TIA, UTI, volume depletion. Data reviewed: vital signs, nurses notes, lab test result(s), EKG, radiologic studies, CT scan, plain films, and as a result, I will discharge patient. Data interpreted: personnel monitor: rate is 63 beats/min, rhythm is normal sinus rhythm, regular, with no ectopy, Interpretation: normal rate, normal rhythm, Pulse oximetry: on room air is 99 %. Interpretation: normal. Counseling: I had a detailed discussion with the patient and/or guardian regarding: the historical points, exam findings, and any diagnostic results supporting the discharge/admit diagnosis, lab results, radiology results, the need for outpatient follow up, to return to the emergency department if symptoms worsen or persist or if there are any questions or concerns that arise at home. Response to treatment: the patient's symptoms have markedly improved after treatment, and as a result, I will discharge patient. Special discussion: I discussed with the patient/guardian in detail that at this point there is no indication for admission to the hospital. It is understood, however, that if the symptoms persist or worsen the patient needs to return immediately for re-evaluation. ED course: Patient markedly improved and when compared to documentation he arrived with from long-term seems to be at baseline, is ambulatory on his own and able to urinate a bathroom. No acute findings on CT head or x-ray chest. Urine clean. Stable vital signs. No agitation or focal neurological deficits noted here. Already on aspirin. Will DC back to long-term with return precautions.. 09/17 12:34 Order name: CBC with Diff rn 09/17 12:34 Order name: Basic Metabolic Panel rn 09/17 12:34 Order name: Urine Culture rn 09/17 12:34 Order name: Urine Microscopic Only; Complete Time: 16:09 rn 09/17 12:34 Order name: Procalcitonin; Complete Time: 13:46 rn 09/17 12:34 Order name: Blood Culture Adult (2) rn 09/17 12:34 Order name: CT Head Brain wo Cont; Complete Time: 13:46 rn 09/17 12:34 Order name: EKG; Complete Time: 12:34 rn 09/17 12:34 Order name: COVID-19 SARS RT PCR (Document "Date of Onset" if Symptomatic); Complete rn Time: 16:09 09/17 12:34 Order name: XRAY Chest (1 view); Complete Time: 13:46 rn 09/17 12:34 Order name: CBC with Automated Diff; Complete Time: 13:46 EDMS 09/17 12:34 Order name: Basic Metabolic Panel; Complete Time: 13:46 EDHI 09/17 14:28 Order name: Urine Dipstick-Ancillary; Complete Time: 16:09 EDHI 09/17 12:34 Order name: IV Start; Complete Time: 13:06 rn 09/17 12:34 Order name: Urine Dipstick-Ancillary (obtain specimen); Complete Time: 14:27 rn 09/17 12:34 Order name: EKG - Nurse/Tech; Complete Time: 12:34 rn 09/17 16:52 Order name: Diet Regular; Complete Time: 16:52 iw EC:44 Rate is 60 beats/min. Rhythm is regular. QRS [place] is Normal. [place] interval is normal. QRS rn interval is normal. QT interval is normal. No Q waves. T waves are Normal. No ST changes noted. Clinical impression: Normal ECG. Interpreted by me. Reviewed by me. Administered Medications: 13:31 Drug: NS 0.9% 500 ml Route: IV; Rate: bolus; Site: right wrist; vg1 14:27 Follow up: IV Status: Completed infusion; IV Intake: 500ml vg1 Disposition Summary: 09/17/21 16:29 Discharge Ordered Location: Home rn Problem: new rn Symptoms: have improved rn Condition: Stable rn Diagnosis - Dehydration rn Followup: rn - With: Private Physician - When: As needed - Reason: Recheck today's complaints, Re-evaluation by your physician Discharge Instructions: - Discharge Summary Sheet rn - Dehydration, Adult rn Forms: - Medication Reconciliation Form rn - Thank You Letter rn - Antibiotic data governance analyst - Prescription Opioid Use rn Signatures: Dispatcher [employer] [facility] Adriano Ernandez MD MD rn Garcia, Victoria RN RN vg1 Corrections: (The following items were deleted from the chart) 16:24 16:12 Constitutional: This is a well developed, well nourished patient who is awake, rn alert, and in no acute distress. Wants full conversation with me and nurse. Head/Face: Normocephalic, atraumatic. Eyes: Periorbital areas with no swelling, redness, or edema. ENT: Dry mucous membranes. No stridor rn 16:29 16:29 Encounter for general adult medical examination without abnormal findings rn rn
--- NOTE | 2021-09-17 16:29 | ER ---
Nurse's Notes [facility] Name: Luis Fernando Carias Age: 86 yrs Sex: Male : 1935 Arrival Date: 09/17/2021 Time: 12:17 Bed 27 Private MD: Diagnosis: Dehydration Presentation: 09/17 12:26 Chief complaint: EMS states: Staff at [facility] stated pt was drooling and having vg1 dysphagia. Stated about 3 weeks ago pt had a TIA and pt was AOx2; was only able to state name and 's name. Upon arrival of EMS staff stated pt 'seem fine now'. Pt was AOx2, name and wifes name. Pt is able to stated name, but is unable to stated location and year. Pt denies pain at this time. BS 129. Coronavirus screen: Vaccine status: Patient reports receiving the 1st dose of the Covid vaccine. Date June 25, 2021 Client denies travel out of the [place] in the last 14 days. Ebola Screen: Patient negative for fever greater than or equal to 101.5 degrees Fahrenheit, and additional compatible Ebola Virus Disease symptoms. Initial Sepsis Screen: Does the patient meet any 2 criteria? No. Patient's initial sepsis screen is negative. Does the patient have a suspected source of infection? No. Patient's initial sepsis screen is negative. Risk Assessment: Do you want to hurt yourself or someone else? Patient reports no desire to harm self or others. Onset of symptoms was September 17, 2021. 12:26 Method Of Arrival: EMS: [facility] 12:26 Acuity: LIZA 3 vg1 Triage Assessment: 12:34 General: Appears in no apparent distress. comfortable, Behavior is calm, cooperative. vg1 Pain: Denies pain. EENT: No deficits noted. Neuro: Level of Consciousness is awake, alert, obeys commands, Oriented to person, . Rn Bone Marrow Transplant are equal bilaterally Moves all extremities. Speech is normal, Facial symmetry appears normal, Intact. Cardiovascular: Patient's skin is warm and dry. Respiratory: Airway is patent Respiratory effort is even, unlabored. GI: No signs and/or symptoms were reported involving the gastrointestinal system. : No signs and/or symptoms were reported regarding the genitourinary system. Derm: Skin is intact. Musculoskeletal: Circulation, motion, and sensation intact. Historical: - Allergies: 12:34 PENICILLINS; vg1 - PMHx: 13:33 AFIB; Altered Mental Status; Anxiety; CAD; cerbrebral infarction; CHF; CVA; DYSPHAGIA; vg1 e coli; fall; Hypertensive disorder; inguinal hernia; insomnia; metabolic encephalopathy; MUSCLE WEAKNESS; UTI; Dementia; Dysphagia; Cognitie communication deficit; - Immunization history:: Adult Immunizations up to date, Client reports receiving the 1st dose of the Covid vaccine. - Social history:: Smoking status: Patient denies any tobacco usage or history of. - Family history:: not pertinent. - Hospitalizations: : No recent hospitalization is reported. Screenin:36 Abuse screen: Denies threats or abuse. Nutritional screening: No deficits noted. vg1 Tuberculosis screening: No symptoms or risk factors identified. Fall Risk No fall in past 12 months (0 pts). No secondary diagnosis (0 pts). IV access (20 points). Ambulatory Aid- None/Bed Rest/Nurse Assist (0 pts). Gait- Weak (10 pts.). Mental Status- Overestimates/Forgets Limitations (15 pts.). Total Ordonez Fall Scale indicates High Risk Score (45 or more points). Fall prevention measures have been instituted. Side Rails Up X 2 Placed Close to Nursing Station. Assessment: 12:37 Reassessment: see triage. vg1 13:31 Reassessment: Patient appears in no apparent distress at this time. No changes from vg1 previously documented assessment. Patient and/or family updated on plan of care and expected duration. Pain level reassessed. Patient is alert, oriented x 3, equal unlabored respirations, skin warm/dry/pink. 14:26 Reassessment: Patient appears in no apparent distress at this time. No changes from vg1 previously documented assessment. Patient and/or family updated on plan of care and expected duration. Pain level reassessed. Patient is alert, oriented x 3, equal unlabored respirations, skin warm/dry/pink. 15:09 Reassessment: Pt needed to urinated, gave pt urinal and pt refused to use, stated vg1 wanted to go to the restroom on own; assisted pt to restroom in [place], gait was steady. Pt urinated and was placed back into pt bed. Pt denied any pain. Provider notified. 15:52 Reassessment: Patient appears in no apparent distress at this time. No changes from vg1 previously documented assessment. Patient and/or family updated on plan of care and expected duration. Pain level reassessed. Pt resting with eyes closed. 16:58 Reassessment: called [facility], and staff stated 'we do not have a transportation vg1 system'. Charge nurse notified. 17:41 Reassessment: Patient appears in no apparent distress at this time. No changes from vg1 previously documented assessment. Patient and/or family updated on plan of care and expected duration. Pain level reassessed. Patient is alert, oriented x 3, equal unlabored respirations, skin warm/dry/pink. Vital Signs: 12:26 BP 129 / 69; Pulse 67; Resp 18; Temp 98.4(O); Pulse Ox 97% ; Weight 67.59 kg; Pain 0/10;vg1 13:00 BP 130 / 68; Pulse 74; Resp 18; Pulse Ox 100% ; vg1 14:00 BP 127 / 52; Pulse 68; Resp 17; Pulse Ox 100% ; vg1 14:30 BP 112 / 54; Pulse 76; Resp 15; Pulse Ox 97% ; vg1 15:30 BP 111 / 54; Pulse 63; Resp 15; Pulse Ox 99% ; vg1 ED Course: 12:17 Patient arrived in ED. em1 12:26 Nasima Mccray, RN is Primary Nurse. vg1 12:28 Adriano Ernandez MD is Attending Physician. rn 12:34 Triage completed. vg1 12:34 Arm band placed on. vg1 12:36 Patient has correct armband on for positive identification. Bed in low position. Call vg1 light in reach. Side rails up X2. monitoring engineer on. Pulse ox on. NIBP on. 12:51 Initial lab(s) drawn, by me, sent to lab. Inserted saline lock: 20 gauge in right iw wrist, using aseptic technique. Blood collected. 12:52 CT Head Brain wo Cont In Process Unspecified. EDMS 13:13 XRAY Chest (1 view) In Process Unspecified. EDMS 14:25 Straight cath inserted, using sterile technique, 16 Fr. Specimen obtained. Returned vg1 clear yellow urine. Patient tolerated well. 17:41 No provider procedures requiring assistance completed. IV discontinued, intact, vg1 bleeding controlled, No redness/swelling at site. Pressure dressing applied. Administered Medications: 13:31 Drug: NS 0.9% 500 ml Route: IV; Rate: bolus; Site: right wrist; vg1 14:27 Follow up: IV Status: Completed infusion; IV Intake: 500ml vg1 Intake: 14:27 IV: 500ml; Total: 500ml. vg1 Outcome: 16:29 Discharge ordered by . rn 17:41 Discharged to [facility]. Report called to [facility] staff vg1 17:41 Condition: stable 17:41 Discharge instructions given to [facility], Instructed on discharge instructions, follow up and referral plans. Demonstrated understanding of instructions, follow-up care. 17:42 Patient left the ED. vg1 Signatures: Dispatcher [employer] EDMS India Alonso RN RN iw Nieto, Roman, MD MD rn Martinez, Eric em1 Garcia, Victoria, RN RN vg1 Corrections: (The following items were deleted from the chart) 13:56 12:26 Chief complaint: EMS states: Staff at [facility] stated pt was drooling and having vg1 dysphagia. Stated about 3 weeks ago pt had a TIA and pt was AOx2; was only able to state name and 's name. Upon arrival of EMS staff stated pt 'seem fine now'. Pt was AOx2, name and wifes name. Pt is able to stated name, but is unable to stated location and year. Pt denies pain at this time. vg1
[2021-09-17 18:10] VITALS: TEMP 98.4
[2021-09-17 18:16] VITALS: BP 111/54; O2SAT 99
--- NOTE | 2021-09-21 18:36 | EKG ---
Test Date: 2021-09-17 Test Time: 12:29:11 Music Minister: MAX MEASUREMENT RESULTS: Intervals: Rate: 60 LA: 206 QRSD: 70 QT: 392 QTc: 392 [place]: P: 68 LA: 206 QRS: 62 T: 64 INTERPRETIVE STATEMENTS: Normal sinus rhythm Normal ECG Compared to ECG 08/28/2021 02:53:46 Early repolarization no longer present Electronically Signed On 09-21-21 18:24:52 WARD ATTENDANT by Matteo Owen
--- NOTE | 2021-09-21 18:36 | EKG ---
Test Date: 2021-09-17 Test Time: 12:29:38 Flamer After Lasting: MAX MEASUREMENT RESULTS: Intervals: Rate: 0 CT: QRSD: 0 QT: 0 QTc: 0 [place]: P: CT: QRS: 0 T: 0 INTERPRETIVE STATEMENTS: No QRS complexes found, no ECG analysis possible Compared to ECG 08/28/2021 02:53:46 Early repolarization no longer present Electronically Signed On 09-21-21 18:24:52 REGISTERED NURSE MATERNITY by Matteo Owen
--- OUTSIDE RECORDS SUMMARY | 2021-09-26 11:39 | XMS REPORT | Continuity of Care Document ---
:1935 Author Organization [facility] t Address [address] [place] [address] Care Team Providers Name Role Phone Gadoeh Attending Clinician Unavailable UNDEFINED Admitting Clinician Unavailable Physician, Primary or Family Admitting Clinician Unavailabl e Payers Payer Name Policy Type Policy Number Effective Date Expiration Date S ource Problems This patient has no known problems. Allergies, Adverse Reactions, Alerts Allergy Allergy Status Severity Reaction(s) Onset Inactive Treating Comm ents Source Name Type Date Date Clinician [place] DA Active [facility] 12-10 Clear 00:00: [address] Pen[place] DA Active U [facility] ins 12-10 Clear 00:00: [address] Medications This patient has no known medications. Procedures This patient has no known procedures. Encounters Start End Encounter Admission Attending Care Care Encounter Source Date/Time Date/Time Type Type Clinicians Facility Department ID 2019-12-10 Inpatient HCAPM BRANDON [id number] [facility] 09:14:00 [id number] [facility] 2019-12-10 2019-12-10 Outpatient SATISH Leger [id number] [facility] 23:50:00 23:50:00 Jaspal [id number] [facility] Results Test Description Test Time Test Comments Results Result Comments Source BASIC METABOLIC PANEL 2019-12-13 07:18:00 Test Item Value Reference Range Interpretation Comme nts SODIUM (test code = NA) 135 mmol/L 134-147 N POTASSIUM (test code = K) 3.2 mmol/L 3.4-5.0 L CHLORIDE (test code = CL) 100 mmol/L 100-108 N CARBON DIOXIDE (test code = CO2) 27 mmol/L 21-32 N ANION GAP (test code = GAP) 8.0 GAP calc 4.0-15.0 N GLUCOSE (test code = GLU) 99 MG/DL 70-110 N BLOOD UREA NITROGEN (test code = BUN) 7 MG/DL 7-18 N GLOMERULAR FILTRATION RATE (test code = GFR) >=60 max estimate estG FR >60 CREATININE (test code = CREAT) 0.7 MG/DL 0.8-1.3 L CALCIUM (test code = CA) 7.9 MG/DL 8.5-10.1 L CBC W/AUTO [id number] 07:10:00 Test Item Value Reference Range Interpretation Comments WHITE BLOOD CELL (test code = 9.5 K/mm3 3.5-11.0 N WBC) RED BLOOD CELL (test code = RBC) 3.94 M/mm3 4.70-6.10 L HEMOGLOBIN (test code = HGB) 12.3 G/DL 12.3-15.9 N HEMATOCRIT (test code = HCT) 34.3 % 35.8-46.7 L MEAN CELL VOLUME (test code = 87.1 Fl 86.3-98.9 N MCV) MEAN CELL HGB (test code = MCH) 31.2 pg 28.9-34.4 N MEAN CELL HGB CONCETRATION (test 35.9 G/DL 32.1-34.5 H code = MCHC) RED CELL DISTRIBUTION WIDTH (test 12.3 SD 11.5-14.5 N code = RDW) PLATELET COUNT (test code = PLT) 213.0 K/mm3 150-450 N MEAN PLATELET VOLUME (test code = 8.90 fL 7.0-9.6 N MPV) NEUTROPHIL % (test code = NT%) 83.1 % 40-76 H LYMPHOCYTE % (test code = LY%) 9.8 % 20.5-51.1 L MONOCYTE % (test code = MO%) 5.6 % 1.7-9.3 N EOSINOPHIL % (test code = EO%) 1.4 % 0.0-6.0 N BASOPHIL % (test code = BA%) 0.1 % 0.0-2.0 N NEUTROPHIL # (test code = NT#) 7.86 K/mm3 1.8-7.6 H LYMPHOCYTE # (test code = LY#) 0.9 K/mm3 0.6-3.0 N MONOCYTE # (test code = MO#) 0.5 K/mm3 0.2-1.5 N EOSINOPHIL # (test code = EO#) 0.1 K/mm3 0.0-0.4 N BASOPHIL # (test code = BA#) 0.0 K/mm3 0.0-0.2 N MANUAL DIFF REQUIRED (test code = NO DIFF/SCN CRITERIA MDIFF) COMPREHENSIVE METABOLIC [id number] 17:31:00 Test Item Value Reference Range Interpretation Comments SODIUM (test code = NA) 130 mmol/L 134-147 L POTASSIUM (test code = 4.3 mmol/L 3.4-5.0 N K) CHLORIDE (test code = 97 mmol/L 100-108 L CL) CARBON DIOXIDE (test 26 mmol/L 21-32 N code = CO2) ANION GAP (test code = 7.0 GAP calc 4.0-15.0 N GAP) GLUCOSE (test code = 150 MG/DL 70-110 H GLU) BLOOD UREA NITROGEN 13 MG/DL 7-18 N (test code = BUN) GLOMERULAR FILTRATION >=60 max estimate >60 RATE (test code = GFR) estGFR CREATININE (test code = 0.8 MG/DL 0.8-1.3 N CREAT) TOTAL PROTEIN (test code 5.5 G/DL 6.4-8.2 L = PROT) ALBUMIN (test code = 2.8 G/DL 3.4-5.0 L ALB) GLOBULIN (test code = 2.7 GM/dL GLOB) ALBUMIN/GLOBULIN RATIO 1.0 RATIO 1.2-2.2 L (test code = A/G) CALCIUM (test code = CA) 7.5 MG/DL 8.5-10.1 L BILIRUBIN TOTAL (test 0.80 MG/DL 0.2-1.2 N code = BILT) SGOT/AST (test code = 241 Unit/L 15-37 H AST) SGPT/ALT (test code = 86 Unit/L 12-78 H ALT) ALKALINE PHOSPHATASE 52 Unit/L 50-136 N TOTAL (test code = ALKP) COMPREHENSIVE METABOLIC [id number] 17:20:00 Test Item Value Reference Range Interpretation Comments SODIUM (test code = NA) 130 mmol/L 134-147 L POTASSIUM (test code = K) 4.3 mmol/L 3.4-5.0 N CHLORIDE (test code = CL) 97 mmol/L 100-108 L CARBON DIOXIDE (test code = CO2) 26 mmol/L 21-32 N ANION GAP (test code = GAP) 7.0 GAP calc 4.0-15.0 N GLUCOSE (test code = GLU) 150 MG/DL 70-110 H BLOOD UREA NITROGEN (test code = 13 MG/DL 7-18 N BUN) GLOMERULAR FILTRATION RATE (test estGFR >60 code = GFR) CREATININE (test code = CREAT) MG/DL 0.8-1.3 TOTAL PROTEIN (test code = PROT) G/DL 6.4-8.2 ALBUMIN (test code = ALB) G/DL 3.4-5.0 GLOBULIN (test code = GLOB) GM/dL ALBUMIN/GLOBULIN RATIO (test RATIO 1.2-2.2 code = A/G) CALCIUM (test code = CA) 7.5 MG/DL 8.5-10.1 L BILIRUBIN TOTAL (test code = MG/DL 0.2-1.2 BILT) SGOT/AST (test code = AST) Unit/L 15-37 SGPT/ALT (test code = ALT) Unit/L 12-78 ALKALINE PHOSPHATASE TOTAL (test Unit/L 50-136 code = ALKP) BASIC METABOLIC [id number] 04:21:00 Test Item Value Reference Range Interpretation Comments SODIUM (test code = NA) 135 mmol/L 134-147 N POTASSIUM (test code = 4.5 mmol/L 3.4-5.0 N K) CHLORIDE (test code = 102 mmol/L 100-108 N CL) CARBON DIOXIDE (test 25 mmol/L 21-32 N code = CO2) ANION GAP (test code = 8.0 GAP calc 4.0-15.0 N GAP) GLUCOSE (test code = 74 MG/DL 70-110 N GLU) BLOOD UREA NITROGEN 16 MG/DL 7-18 N (test code = BUN) GLOMERULAR FILTRATION >=60 max estimate >60 RATE (test code = GFR) estGFR CREATININE (test code = 0.8 MG/DL 0.8-1.3 N CREAT) CALCIUM (test code = CA) 8.0 MG/DL 8.5-10.1 L [id number] 04:21:00 Test Item Value Reference Range Interpretation Comments MAGNESIUM (test code = MAG) 1.8 MG/DL 1.8-2.4 N CBC W/AUTO [id number] 04:10:00 Test Item Value Reference Range Interpretation Comments WHITE BLOOD CELL (test code = 12.9 K/mm3 3.5-11.0 H WBC) RED BLOOD CELL (test code = RBC) 3.88 M/mm3 4.70-6.10 L HEMOGLOBIN (test code = HGB) 12.0 G/DL 12.3-15.9 L HEMATOCRIT (test code = HCT) 34.3 % 35.8-46.7 L MEAN CELL VOLUME (test code = 88.4 Fl 86.3-98.9 N MCV) MEAN CELL HGB (test code = MCH) 30.9 pg 28.9-34.4 N MEAN CELL HGB CONCETRATION (test 35.0 G/DL 32.1-34.5 H code = MCHC) RED CELL DISTRIBUTION WIDTH (test 12.7 SD 11.5-14.5 N code = RDW) PLATELET COUNT (test code = PLT) 212.0 K/mm3 150-450 N MEAN PLATELET VOLUME (test code = 8.50 fL 7.0-9.6 N MPV) NEUTROPHIL % (test code = NT%) 81.0 % 40-76 H LYMPHOCYTE % (test code = LY%) 11.8 % 20.5-51.1 L MONOCYTE % (test code = MO%) 6.0 % 1.7-9.3 N EOSINOPHIL % (test code = EO%) 1.0 % 0.0-6.0 N BASOPHIL % (test code = BA%) 0.2 % 0.0-2.0 N NEUTROPHIL # (test code = NT#) 10.47 K/mm3 1.8-7.6 H LYMPHOCYTE # (test code = LY#) 1.5 K/mm3 0.6-3.0 N MONOCYTE # (test code = MO#) 0.8 K/mm3 0.2-1.5 N EOSINOPHIL # (test code = EO#) 0.1 K/mm3 0.0-0.4 N BASOPHIL # (test code = BA#) 0.0 K/mm3 0.0-0.2 N MANUAL DIFF REQUIRED (test code = NO DIFF/SCN CRITERIA MDIFF) BASIC METABOLIC [id number] 05:55:00 Test Item Value Reference Range Interpretation Comments SODIUM (test code = NA) 136 mmol/L 134-147 N POTASSIUM (test code = 4.4 mmol/L 3.4-5.0 N K) CHLORIDE (test code = 105 mmol/L 100-108 N CL) CARBON DIOXIDE (test 21 mmol/L 21-32 N code = CO2) ANION GAP (test code = 10.0 GAP calc 4.0-15.0 N GAP) GLUCOSE (test code = 86 MG/DL 70-110 N GLU) BLOOD UREA NITROGEN 18 MG/DL 7-18 N (test code = BUN) GLOMERULAR FILTRATION >=60 max estimate >60 RATE (test code = GFR) estGFR CREATININE (test code = 1.2 MG/DL 0.8-1.3 N CREAT) CALCIUM (test code = CA) 8.3 MG/DL 8.5-10.1 L CBC W/AUTO [id number] 05:37:00 Test Item Value Reference Range Interpretation Comments WHITE BLOOD CELL (test code = 13.8 K/mm3 3.5-11.0 H WBC) RED BLOOD CELL (test code = RBC) 3.75 M/mm3 4.70-6.10 L HEMOGLOBIN (test code = HGB) 11.7 G/DL 12.3-15.9 L HEMATOCRIT (test code = HCT) 33.5 % 35.8-46.7 L MEAN CELL VOLUME (test code = 89.3 Fl 86.3-98.9 N MCV) MEAN CELL HGB (test code = MCH) 31.2 pg 28.9-34.4 N MEAN CELL HGB CONCETRATION (test 34.9 G/DL 32.1-34.5 H code = MCHC) RED CELL DISTRIBUTION WIDTH (test 13.1 SD 11.5-14.5 N code = RDW) PLATELET COUNT (test code = PLT) 213.0 K/mm3 150-450 N MEAN PLATELET VOLUME (test code = 9.00 fL 7.0-9.6 N MPV) NEUTROPHIL % (test code = NT%) 84.3 % 40-76 H LYMPHOCYTE % (test code = LY%) 8.7 % 20.5-51.1 L MONOCYTE % (test code = MO%) 6.7 % 1.7-9.3 N EOSINOPHIL % (test code = EO%) 0.1 % 0.0-6.0 N BASOPHIL % (test code = BA%) 0.2 % 0.0-2.0 N NEUTROPHIL # (test code = NT#) 11.62 K/mm3 1.8-7.6 H LYMPHOCYTE # (test code = LY#) 1.2 K/mm3 0.6-3.0 N MONOCYTE # (test code = MO#) 0.9 K/mm3 0.2-1.5 N EOSINOPHIL # (test code = EO#) 0.0 K/mm3 0.0-0.4 N BASOPHIL # (test code = BA#) 0.0 K/mm3 0.0-0.2 N MANUAL DIFF REQUIRED (test code = NO DIFF/SCN CRITERIA MDIFF) UA RFLX MICR CULT IF [id number] 00:38:00 Test Item Value Reference Range Interpretation Comments UA COLOR (test code = RED discript YEL/STRAW A COLU) UA APPEARANCE (test code SLIGHTLY CLOUDY CLEAR = APPU) discript UA GLUCOSE DIPSTICK (test NEGATIVE mg/dL NEG code = DGLUU) UA BILIRUBIN DIPSTICK NEGATIVE mg/dL NEG (test code = BILU) UA KETONE DIPSTICK (test 1+ mg/dL NEG code = KETU) UA SPECIFIC GRAVITY (test 1.015 SG 1.005-1.030 code = SGU) UA BLOOD DIPSTICK (test 3+ mg/DL NEG A code = TRAVIS) UA PH DIPSTICK (test code 8.0 pH UNITS 5.0-7.0 = MAYELIN) UA PROTEIN DIPSTICK (test 1+ mg/dL NEG A code = PROU) UA UROBILINIOGEN DIPSTICK 0.2 mg/dL <2.0 (test code = URO) UA NITRITE DIPSTICK (test NEGATIVE SCREEN NEG code = ELENA) UA LEUKOCYTE ESTERASE NEGATIVE Leuk/mcL NEGATIVE DIPSTICK (test code = LEUU) UA RBC (test code = RBCU) 40-50 #RBC/HPF 0-3 A UA SQUAMOUS CELLS (test TRACE /HPF NONE code = SQU) UA CULTURE NEEDED? (test NO, WBC<10 Criteria Culture CHK code = UACULT) SOURCE OF URINE: COLLINS CATHETERIndication for culture: Temperature > 100.4 FUA RFLX MICR CULT IF [id number] 00:29:00 Test Item Value Reference Range Interpretation Comments UA COLOR (test code = RED discript YEL/STRAW A COLU) UA APPEARANCE (test code SLIGHTLY CLOUDY CLEAR = APPU) discript UA GLUCOSE DIPSTICK (test NEGATIVE mg/dL NEG code = DGLUU) UA BILIRUBIN DIPSTICK NEGATIVE mg/dL NEG (test code = BILU) UA KETONE DIPSTICK (test 1+ mg/dL NEG code = KETU) UA SPECIFIC GRAVITY (test 1.015 SG 1.005-1.030 code = SGU) UA BLOOD DIPSTICK (test 3+ mg/DL NEG A code = TRAVIS) UA PH DIPSTICK (test code 8.0 pH UNITS 5.0-7.0 = MAYELIN) UA PROTEIN DIPSTICK (test 1+ mg/dL NEG A code = PROU) UA UROBILINIOGEN DIPSTICK 0.2 mg/dL <2.0 (test code = URO) UA NITRITE DIPSTICK (test NEGATIVE SCREEN NEG code = ELENA) UA LEUKOCYTE ESTERASE NEGATIVE Leuk/mcL NEGATIVE DIPSTICK (test code = LEUU) UA CULTURE NEEDED? (test Criteria Culture CHK code = UACULT) SOURCE OF URINE: COLLINS CATHETERIndication for culture: Temperature > 100.4 FDRUGS OF ABUSE SCREEN [id number] 22:51:00 Test Item Value Reference Range Interpretation Comments URN COCAINE (test code = NEGATIVE SCcutoff <300 NG/ML COCAURN) URN CANNABINOIDS (test code NEGATIVE SCcutoff <50 NG/ML = CANNABURN) URN AMPHETAMINE (test code POSITIVE SCcutoff <1000 NG/ML A = AMPHETURN) URN BARBITURATE (test code NEGATIVE SCcutoff <200 NG/ML = BARBITURN) URN BENZODIAZEPINE (test NEGATIVE SCcutoff <200 NG/ML code = BENZOURN) URN OPIATES (test code = NEGATIVE SCcutoff <2000 NG/ML OPIATURN) URN PHENCYCLIDINE (PCP) NEGATIVE SCcutoff <25 NG/ML (test code = PHENCURN) URN METHADONE (test code = NEGATIVE SCcutoff <300 NG/ML METHAURN) [id number] 17:16:00 Test Item Value Reference Range Interpretation Comments TROPONIN-I (test 3.450 NG/ML 0.000-0.045 HH Negative: < /= 0.045 code = TROPI) Positive: >/= 0.046 Correlation wit h serial results, other cardiac markers, and cl inical findings is nec essary to determine the c linical significance of this result. Quantit ative results using d ifferent methodologies s hould not be compared to one another as nume rical results may aubree yby method. CPK-MB [id number] 15:37:00 Test Item Value Reference Range Interpretation Comments CREATINE KINASE (CK) (test code = 330 Unit/L 26-192 H CK) CKMB (test code = CKMBT) 19.6 NG/ML 0.0-4.9 H RELATIVE % INDEX (test code = 5.9 % 0.0-2.5 HH REL%) GLUCOSE BEDSIDE [id number] 15:35:00 Test Item Value Reference Range Interpretation Comments GLUCOSE BEDSIDE TESTING (test code 107 mg/dL 70-110 N = GLUBED) GLUCOSE BEDSIDE [id number] 15:35:00 Test Item Value Reference Range Interpretation Comments GLUCOSE BEDSIDE TESTING (test code = 87 mg/dL 70-110 N GLUBED) [id number] 14:36:00 Test Item Value Reference Range Interpretation Comments TROPONIN-I (test 4.890 NG/ML 0.000-0.045 HH Negative: < /= 0.045 code = TROPI) Positive: >/= 0.046 Correlation wit h serial results, other cardiac markers, and cl inical findings is nec essary to determine the c linical significance of this result. Quantit ative results using d ifferent methodologies s hould not be compared to one another as nume rical results may aubree yby method. Completed by Nursing: NO- CT HEAD/BRAIN W/O [id number] 10:39:00 Name: CATHERINE HAY : 1935 Age/S: 84 / M [id number] [address] [facility] Unit #: [id number] Loc: [place] [address] Phys: Cruz Bennett MD Acct: [id number] Dis Date: Status: ADM IN PHONE #: [phone] Exam Date: 12/10/2019 1025 FAX #: Reason: ams EXAMS: CPT: [id number] CT HEAD/BRAIN W/O CONT 75980 CT head without contrast. Location: B2 Clinical indication:84-year-old with altered mental status Comparison:None Technique: Computed axial images were obtained from the vertex to the skull base without IV contrast. Up to date CT equipment and radiation dose reduction technique were utilized. Findings:Mild global atrophy. Minimalperiventricular leukoaraiosis. No acute intracranial hemorrhage. Blanco-white differentiation is preserved, without evidence of acute infarct by CT criteria. No soft tissue mass. Nomidline shift. The basal cisterns are patent. There is atherosclerotic calcification of the internal carotid and vertebral arteries. No acute osseous abnormality. Impression: 1. No acute intracranial abnormality to account for patient's symptoms. 2. Mild global atrophy and periventricular leukoaraiosis. at 1039 Reported and signed by: Efren Abraham M.D. CC: Cruz Bennett MD Technologist:Hemalatha Klein RT(R); Nancy CTDI: DLP: Trnscb Date/Time: 12/10/2019 (1039) [email or web address] Orig Print D/T: S: 12/10/2019 (4720) PAGE 1 Signed ReportCOMPREHENSIVE METABOLIC [id number] 10:06:00 Test Item Value Reference Range Interpretation Comments SODIUM (test code = NA) 133 mmol/L 134-147 L POTASSIUM (test code = 4.1 mmol/L 3.4-5.0 N K) CHLORIDE (test code = 101 mmol/L 100-108 N CL) CARBON DIOXIDE (test 22 mmol/L 21-32 N code = CO2) ANION GAP (test code = 10.0 GAP calc 4.0-15.0 N GAP) GLUCOSE (test code = 77 MG/DL 70-110 N GLU) BLOOD UREA NITROGEN 13 MG/DL 7-18 N (test code = BUN) GLOMERULAR FILTRATION >=60 max estimate >60 RATE (test code = GFR) estGFR CREATININE (test code = 1.2 MG/DL 0.8-1.3 N CREAT) TOTAL PROTEIN (test code 6.8 G/DL 6.4-8.2 N = PROT) ALBUMIN (test code = 3.8 G/DL 3.4-5.0 N ALB) GLOBULIN (test code = 3.0 GM/dL GLOB) ALBUMIN/GLOBULIN RATIO 1.3 RATIO 1.2-2.2 N (test code = A/G) CALCIUM (test code = CA) 8.6 MG/DL 8.5-10.1 N BILIRUBIN TOTAL (test 1.40 MG/DL 0.2-1.2 H code = BILT) SGOT/AST (test code = 24 Unit/L 15-37 N AST) SGPT/ALT (test code = 19 Unit/L 12-78 N ALT) ALKALINE PHOSPHATASE 48 Unit/L 50-136 L TOTAL (test code = ALKP) Completed by Nursing: [id number] 10:06:00 Test Item Value Reference Range Interpretation Comments TROPONIN-I (test 0.533 NG/ML 0.000-0.045 HH Negative: < /= 0.045 code = TROPI) Positive: >/= 0.046 Correlation wit h serial results, other cardiac markers, and cl inical findings is nec essary to determine the c linical significance of this result. Quantit ative results using d ifferent methodologies s hould not be compared to one another as nume rical results may aubree yby method. Completed by Nursing: JOSEROPONIN I [id number] 10:04:00 Test Item Value Reference Range Interpretation Comments TROPONIN I RAPID 0.44 ng/mL 0.00-0.08 Results above 0.08 are (test code = consistent with NACB TROPIRAP) IFCCCommittee recommendations to use the 99th percen tile of anormal populat ion as a reference decis ion-limit. - The use of se rial sampling and testingprotocol is arecommended pr actice.- An elevated tro poninlevel alone is often not sufficientfor d iagnosis of myocardial i nfraction. - XR CHEST 1 [id number] 09:51:00 Name: CATHERINE HAY [facility] : 1935 Age/S: 84 / M [id number] [address] [facility] Unit #: [id number] Loc: [place] [address] Phys: Cruz Bennett MD Acct: [id number] Dis Date: Status: PRE ER PHONE #: [phone] Exam Date: 12/10/2019 0950 FAX #: Reason: chest pain, phentermine overdose EXAMS: CPT: [id number] XR CHEST 1 V [id number] Fluoro Time: DAP (Gy m2): Air Kerma (mGy): Examination: Chest 1 view Location code: S17 Comparison: None Discussion: Clinical history is remarkable for chest pain, phentermine overdose. Cardiac silhouette is normal in size. There is very minor bilateral basilar atelectasis. No consolidation, effusion, or pneumothorax is appreciated. The osseous structures are unremarkable. Impression: 1. No acute abnormality. at 0951 Reported and signed by: Catherine Montoya M.D. CC: Cruz Bennett MD PAGE 1 Signed Report Name: BHARTICATHERINE VELÁSQUEZ [facility] Patricia : 1935 Age/S: 84 / M [id number] [facility] Unit #: [id number] Loc: [place] [address] Phys: Cruz Bennett MD Acct: [id number] Dis Date: Status: PRE ER PHONE #: [phone] Exam Date: 12/10/2019 0950 FAX #: Reason: chest pain, phentermine overdose EXAMS: CPT: [id number] XR CHEST 1 V [id number] Fluoro Time: DAP (Gy m2): Air Kerma (mGy): <Continued> Technologist: Jamil Talley, RT(R)(CT) Trnscb Date/Time: 12/10/2019 (0951) [id number] Orig Print D/T: S: 12/10/2019(3290) PAGE 2 Signed ReportCBC W/AUTO [id number] 09:32:00 Test Item Value Reference Range Interpretation Comments WHITE BLOOD CELL (test code = 5.9 K/mm3 3.5-11.0 N WBC) RED BLOOD CELL (test code = RBC) 4.35 M/mm3 4.70-6.10 L HEMOGLOBIN (test code = HGB) 13.7 G/DL 12.3-15.9 N HEMATOCRIT (test code = HCT) 39.0 % 35.8-46.7 N MEAN CELL VOLUME (test code = 89.7 Fl 86.3-98.9 N MCV) MEAN CELL HGB (test code = MCH) 31.5 pg 28.9-34.4 N MEAN CELL HGB CONCETRATION (test 35.1 G/DL 32.1-34.5 H code = MCHC) RED CELL DISTRIBUTION WIDTH (test 13.2 SD 11.5-14.5 N code = RDW) PLATELET COUNT (test code = PLT) 237.0 K/mm3 150-450 N MEAN PLATELET VOLUME (test code = 8.50 fL 7.0-9.6 N MPV) NEUTROPHIL % (test code = NT%) 72.4 % 40-76 N LYMPHOCYTE % (test code = LY%) 19.6 % 20.5-51.1 L MONOCYTE % (test code = MO%) 7.5 % 1.7-9.3 N EOSINOPHIL % (test code = EO%) 0.2 % 0.0-6.0 N BASOPHIL % (test code = BA%) 0.3 % 0.0-2.0 N NEUTROPHIL # (test code = NT#) 4.26 K/mm3 1.8-7.6 N LYMPHOCYTE # (test code = LY#) 1.2 K/mm3 0.6-3.0 N MONOCYTE # (test code = MO#) 0.4 K/mm3 0.2-1.5 N EOSINOPHIL # (test code = EO#) 0.0 K/mm3 0.0-0.4 N BASOPHIL # (test code = BA#) 0.0 K/mm3 0.0-0.2 N MANUAL DIFF REQUIRED (test code = NO DIFF/SCN CRITERIA MDIFF)
== END 2021-09-17 17:42 | disposition home or self-care (01) ==
LOC: ER 12:15
DX: E86.0 Dehydration (principal); I10 Essential (primary) hypertension; F03.90 Unspecified dementia, unspecified severity, without behavioral disturbance, psychotic disturbance, mood disturbance, and anxiety; Z88.0 Allergy status to penicillin; Z20.822 Contact with and (suspected) exposure to COVID-19
CPT/HCPCS: 93005 ×2; 87040 ×2; 87088; 85025; 87086; 80048; 36415; 84145; 70450; 71045; 51702; 96360; 99284; U0003; J7040; 81003; 81015